=== PATIENT | male | born 1965 | race Caucasian/White ===

== ENCOUNTER 2017-03-11 14:12 | Observation (INO) | payer OTHER ==
--- NOTE | 2017-03-11 18:46 | PDOC ---
History of Present Illness - General History Source: Patient Exam Limitations: No Limitations - History of Present Illness Initial Comments: The patient is a 52 yo M with a past medical history significant for type 2 DM, HTN, HLD, and stroke who was sent from his PCP with bilateral lower extremity swelling for 3 weeks. The patient states the swelling started in his L leg and has been progressively worsening in both his extremities. The patient also endorses clear watery drainage from spots on his legs and notes his legs feel stiff. The patient also endorses urinary frequency and urgency. He denies hematuria and dysuria. He endorses increased urgency in his BMs as well. He denies melena and hematochezia. He denies shortness of breath, orthopnea, fevers and chills. He denies chest pain, palpitations and lightheadedness. <Tino Moise - Last Filed: 03/11/17 22:23> - General History Source: Patient Exam Limitations: No Limitations <Feliberto Buitrago - Last Filed: 03/11/17 23:16> - General Chief Complaint: Edema Stated Complaint: EDEMA Time Seen by Provider: 03/11/17 17:11 Past History <Tino Moise - Last Filed: 03/11/17 22:23> - Past Medical History Diabetes: Yes HTN: Yes Hypercholesterolemia: Yes - Immunization History Immunization Up to Date: Yes - Psycho/Social/Smoking Cessation Hx Suicidal Ideation: No Smoking History: Current every day smoker Number of Cigarettes Smoked Daily: 5 Information on smoking cessation initiated: No Hx Alcohol Use: No Drug/Substance Use Hx: No Substance Use Type: None <Feliberto Buitrago - Last Filed: 03/11/17 23:16> - Past Medical History Allergies/Adverse Reactions: Allergies Allergy/AdvReac Type Severity Reaction Status Date / Time No Known Allergies Allergy Verified 03/11/17 14:18 Home Medications: Ambulatory Orders Insulin (LOG) Aspart [NovoLOG -] 25 units SQ DAILY 03/11/17 Insulin Lispro [Humalog] See Protocol SQ ASDIR 03/11/17 Lisinopril [Zestril] 40 mg PO DAILY 03/11/17 Magnesium 300 mg PO DAILY 03/11/17 Metformin HCl 1,000 mg PO BID 03/11/17 Review of Systems - Review of Systems Able to Perform ROS?: Yes Comments:: GENERAL/CONSTITUTIONAL: No fever or chills. No weakness. HEAD, EYES, EARS, NOSE AND THROAT: No change in vision. No ear pain or discharge. No sore throat. CARDIOVASCULAR: No chest pain or shortness of breath. RESPIRATORY: No cough, wheezing, or hemoptysis. GASTROINTESTINAL: No nausea, vomiting, diarrhea or constipation. GENITOURINARY: +frequency, urgency No dysuria. MUSCULOSKELETAL: +bilateral LE swelling with drainage No joint or muscle pain. No neck or back pain. SKIN: No rash NEUROLOGIC: No headache, vertigo, loss of consciousness, or change in strength/ sensation. ENDOCRINE: No increased thirst. No abnormal weight change. HEMATOLOGIC/LYMPHATIC: No anemia, easy bleeding, or history of blood clots. ALLERGIC/IMMUNOLOGIC: No hives or skin allergy. <Tino Moise - Last Filed: 03/11/17 22:23> *Physical Exam - Vital Signs Last Vital Signs Temp Pulse Resp BP Pulse Ox 98.7 F 86 18 163/85 98 03/11/17 14:20 03/11/17 14:20 03/11/17 14:20 03/11/17 14:20 03/11/17 14:20 - Physical Exam Comments: GENERAL: Awake, alert, and fully oriented, in no acute distress HEAD: No signs of trauma EYES: PERRLA, EOMI, sclera anicteric, conjunctiva clear ENT: Auricles normal inspection, hearing grossly normal, nares patent, oropharynx clear without exudates. Moist mucosa NECK: Normal ROM, supple, no lymphadenopathy, JVD, or masses LUNGS: Breath sounds equal, clear to auscultation bilaterally. No wheezes, and no crackles HEART: Regular rate and rhythm, normal S1 and S2, no murmurs, rubs or gallops ABDOMEN: Soft, nontender, normoactive bowel sounds. No guarding, no rebound. No masses EXTREMITIES: Normal range of motion. No clubbing or cyanosis. No cords, erythema, or tenderness. Mild clearish drainage from intermittent spots on bilateral LEs. 2+ pitting edema in bilateral LE. NEUROLOGICAL: Cranial nerves II through XII grossly intact. Normal speech, gait not assessed. SKIN: Warm, Dry, normal turgor, no rashes or lesions noted. <Tino Moise - Last Filed: 03/11/17 22:23> - Vital Signs Last Vital Signs Temp Pulse Resp BP Pulse Ox 98.7 F 86 18 163/85 98 03/11/17 14:20 03/11/17 14:20 03/11/17 14:20 03/11/17 14:20 03/11/17 14:20 <Feliberto Buitrago - Last Filed: 03/11/17 23:16> Heart Score/ECG Review #1 ECG reviewed & interpreted by me at: 19:00 03/11/17 20:32 NSR 61, no std/johnna, TWI III, T wave flat aVF, QTC 402 msec <Feliberto Buitrago - Last Filed: 03/11/17 23:16> ED Treatment Course - LABORATORY CBC & Chemistry Diagram: 03/11/17 18:26 03/11/17 20:40 <Tino Moise - Last Filed: 03/11/17 22:23> - LABORATORY CBC & Chemistry Diagram: 03/11/17 18:26 03/11/17 20:40 - RADIOLOGY Radiology Studies Ordered: Category Date Time Status CHEST PA & LAT [RAD] Stat Radiology 03/11/17 18:24 Ordered DUPLEX VASCUL US-2LEGS [US] Stat Ultrasound 03/11/17 18:24 Ordered <Feliberto Buitrago - Last Filed: 03/11/17 23:16> Medical Decision Making - Medical Decision Making Paged Dr. Godwin (secondary social studies teacher for Dr. Ghosh) @ 21:53. Awaiting call back. Paged Dr. Godwin @ 22:23. Awaiting call back. <Tino Moise - Last Filed: 03/11/17 22:23> - Medical Decision Making 03/11/17 18:56 A portion of this note was written by my scribe, under my supervision. Vital Signs Temp Pulse Resp BP Pulse Ox 98.7 F 86 18 163/85 98 03/11/17 14:20 03/11/17 14:20 03/11/17 14:20 03/11/17 14:20 03/11/17 14:20 52 year old male with PMH of HTN, DM, HLD p/w increasingly lower extremity edema b/l x 3 weeks. States has been increasingly more edematous but nontender. States that he has been sitting in his chair often. Noted that it was starting to start some mild clearish leaking from lower extremities and came into the ED. Denies pain, chest pain, shortness of breath. Differential includes DVTs, acute kidney injury, hypoalbumin, CHF. Labs, chest xray, UA, duplex and reassess. 03/11/17 23:12 CBC, BMP 03/11/17 18:26 03/11/17 20:40 CMP Sodium 138 mmol/L (136-145) 03/11/17 20:40 Potassium 3.8 mmol/L (3.5-5.1) 03/11/17 20:40 Chloride 106 mmol/L (98-107) 03/11/17 20:40 Carbon Dioxide 25 mmol/L (21-32) 03/11/17 20:40 Anion Gap 7 (8-16) L 03/11/17 20:40 BUN 16 mg/dL (7-18) 03/11/17 20:40 Creatinine 0.9 mg/dL (0.7-1.3) 03/11/17 20:40 Creat Clearance w eGFR > 60 (>60) 03/11/17 20:40 Random Glucose 323 mg/dL (74-106) H* 03/11/17 20:40 Calcium 8.2 mg/dL (8.5-10.1) L 03/11/17 20:40 Total Bilirubin 0.4 mg/dL (0.2-1.0) 03/11/17 20:40 AST 22 U/L (15-37) 03/11/17 20:40 ALT 28 U/L (12-78) 03/11/17 20:40 Alkaline Phosphatase 150 U/L (45-117) H 03/11/17 20:40 B-Natriuretic Peptide 159.26 pg/ml (5-125) H 03/11/17 20:40 Total Protein 4.8 g/dl (6.4-8.2) L 03/11/17 20:40 Albumin 1.6 g/dl (3.4-5.0) L 03/11/17 20:40 Urine Test Results Urine Color Straw 03/11/17 18:08 Urine Appearance Clear 03/11/17 18:08 Urine pH 6.0 (5.0-8.0) 03/11/17 18:08 Ur Specific [place] 1.020 (1.005-1.025) 03/11/17 18:08 Urine Protein 3+ (NEGATIVE) H 03/11/17 18:08 Urine Glucose (UA) 3+ (NEGATIVE) H 03/11/17 18:08 Urine Ketones Negative (NEGATIVE) 03/11/17 18:08 Urine Blood Negative (NEGATIVE) 03/11/17 18:08 Urine Nitrite Negative (NEGATIVE) 03/11/17 18:08 Urine Bilirubin Negative (NEGATIVE) 03/11/17 18:08 Ur Leukocyte Esterase Trace (NEGATIVE) 03/11/17 18:08 Urine RBC 2 /hpf (0-3) 03/11/17 18:08 Urine WBC 3 /hpf (3-5) 03/11/17 18:08 Ur Epithelial Cells Rare /hpf (FEW) 03/11/17 18:08 Urine Bacteria Rare /hpf (NONE SEEN) 03/11/17 18:08 Chest xray reviewed by me, pending official radiology read. No cardiomegaly. Patient has low albumin and 3+ protein urine concerning for nephrotic syndrome. Given the elevated glucose, this is concerning for potentially diabetic nephropathy. We'll admit for stricter control of glucose and for nephrotic syndrome workup. Case was discussed with bass viol repairer Dr. Godwin who will see patient as a financial operations consultant. Case discussed with [facility] hospitalist, who agrees for admission to the hospital. Case discussed in detail with admitting physician including history, physical exam and ancillary studies. Admitting physician has assumed care for the patient, will follow all pending diagnostics and will complete the evaluation and treatment. <Feliberto Buitrago - Last Filed: 03/11/17 23:16> *DC/Admit/Observation/Transfer - Attestations Scribe Attestion: Documentation prepared by Tino Moise, acting as medical administrator for Feliberto Buitrago MD, MD/DO. <Tino Moise - Last Filed: 03/11/17 22:23> - Discharge Dispostion Admit: Yes <Feliberto Buitrago - Last Filed: 03/11/17 23:16> Diagnosis at time of Disposition: Edema of lower extremity, Hyperglycemia - Discharge Dispostion Condition at time of disposition: Stable - Referrals Referrals: Donita Bruno MD [Primary Care Provider] -
[2017-03-11 18:52] LABS: EOSINOPHIL 2.1 % (0-4.5); MCH 30.9 pg (25.7-33.7); MCHC 34.4 g/dl (32.0-35.9); MEAN CELL VOLUME 89.7 fl (80-96); MEAN PLT VOLUME 8.4 fl (7.5-11.1); NEUTROPHILS 68.6 % (42.8-82.8); PLATELET COUNT 286 K/MM3 (134-434); RDW 14.5 % (11.9-15.9); WHITE BLOOD COUNT 7.4 K/mm3 (4.0-10.0)
[2017-03-11 19:59] LABS: URINE APPEARANCE CLEAR; URINE BILIRUBIN NEGATIVE (NEGATIVE); URINE BLOOD NEGATIVE (NEGATIVE); URINE COLOR STRAW; URINE GLUCOSE (UA) 3+ (NEGATIVE); URINE KETONE NEGATIVE (NEGATIVE); URINE LEUK ESTERASE TRACE (NEGATIVE); URINE NITRITE NEGATIVE (NEGATIVE); URINE UROBILINOGEN NEGATIVE mg/dL (0.2-1.0)
[2017-03-11 20:05] LABS: URINE PROTEIN 3+ (NEGATIVE)
[2017-03-11 20:14] LABS: URINE BACTERIA RARE /hpf (NONE SEEN); URINE HYALINE CAST 1 /lpf; URINE RBC 2 /hpf (0-3); URINE WBC 3 /hpf (3-5)
[2017-03-11 21:42] LABS: ALBUMIN 1.6 g/dl (3.4-5.0); ANION GAP 7 (8-16); BILIRUBIN,TOTAL 0.4 mg/dL (0.2-1.0); CALCIUM 8.2 mg/dL (8.5-10.1); CO2 25 mmol/L (21-32); CREATININE 0.9 mg/dL (0.7-1.3); SGOT/AST 22 U/L (15-37); SGPT/ALT 28 U/L (12-78); TOT PROT 4.8 g/dl (6.4-8.2)
[2017-03-11 21:44] LABS: ALK PHOS 150 U/L (45-117)
[2017-03-11 21:45] LABS: GLUCOSE,RANDOM 323 mg/dL (74-106)
--- NOTE | 2017-03-12 03:32 | HP ---
CHIEF COMPLAINT: leg pain PCP: Dr. Quiñones HISTORY OF PRESENT ILLNESS: Pt is a 52y/o M with PMH type 2 DM, HTN, HLD, and stroke who presented to the ED sent by PCP with leg swelling and pain. Pt has had leg swelling for 3 weeks and went for a regular doctor's appointment today where she told him to come to the ED. Pt states he has small lesions on his legs which can be seen to be weeping. Pt admits to urinaryand fecal urgency and slight incontinence. Pt denies headache, cp, sob, abd pain, flank pain, fever. Pt states he was an alcoholic in the past but quit drinking 10 years ago. Started drinking 6 beers/day 3 weeks ago. Pt states he stopped drinking 2 days ago. Pt also quit smoking 15 years ago but started smoking 1 pack per week 2-3 months ago. ER course was notable for: (1) U/S neg for DVT, CXR, high glucose, alk phos, BNP, low albumin, UA w/ 3+ prot and 3+ glucose, EKG (2) (3) Recent Travel: denies PAST MEDICAL HISTORY: type 2 DM, HTN, HLD, and stroke PAST SURGICAL HISTORY: Social History: Smokin pack per week Alcohol: 6 beers per day Drugs: marijuana Family History: Denies Allergies No Known Allergies Allergy (Verified 03/11/17 14:18) HOME MEDICATIONS: Home Medications Medication Instructions Recorded Insulin (LOG) Aspart [NovoLOG -] 25 units SQ DAILY 03/11/17 Insulin Lispro [Humalog] See Protocol SQ ASDIR 03/11/17 Lisinopril [Zestril] 40 mg PO DAILY 03/11/17 Magnesium 300 mg PO DAILY 03/11/17 Metformin HCl 1,000 mg PO BID 03/11/17 REVIEW OF SYSTEMS CONSTITUTIONAL: Absent: fever, chills, diaphoresis, generalized weakness, malaise, loss of appetite, weight change HEENT: Absent: rhinorrhea, nasal congestion, throat pain, throat swelling, difficulty swallowing, mouth swelling, ear pain, eye pain, visual changes CARDIOVASCULAR: peripheral edema Absent: chest pain, syncope, palpitations, irregular heart rate, lightheadedness , RESPIRATORY: Absent: cough, shortness of breath, dyspnea with exertion, orthopnea, wheezing, stridor, hemoptysis GASTROINTESTINAL: fecal urgency/incontinence with soft stools Absent: abdominal pain, abdominal distension, nausea, vomiting, diarrhea, constipation, melena, hematochezia GENITOURINARY: urgency Absent: dysuria, frequency, , hesitancy, hematuria, flank pain, genital pain MUSCULOSKELETAL: Absent: myalgia, arthralgia, joint swelling, back pain, neck pain SKIN: Absent: rash, itching, pallor HEMATOLOGIC/IMMUNOLOGIC: Absent: easy bleeding, easy bruising, lymphadenopathy, frequent infections ENDOCRINE: Absent: unexplained weight gain, unexplained weight loss, heat intolerance, cold intolerance NEUROLOGIC: Absent: headache, focal weakness or paresthesias, dizziness, unsteady gait, seizure, mental status changes, bladder or bowel incontinence PSYCHIATRIC: Absent: anxiety, depression, suicidal or homicidal ideation, hallucinations. PHYSICAL EXAMINATION GENERAL: Awake, alert, and fully oriented, in no acute distress. HEAD: Normal with no signs of trauma. EYES: Pupils equal, round and reactive to light, extraocular movements intact, sclera anicteric, conjunctiva clear. No lid lag. EARS, NOSE, THROAT: nares patent, oropharynx clear without exudates. Moist mucous membranes. NECK: Normal range of motion, supple without lymphadenopathy, JVD, or masses. LUNGS: Breath sounds equal, clear to auscultation bilaterally. No wheezes, and no crackles. No accessory muscle use. HEART: Regular rate and rhythm, normal S1 and S2 without murmur, rub or gallop. ABDOMEN: Obese Soft, nontender, not distended, normoactive bowel sounds, no guarding, no rebound, no masses. No hepatomegaly or splenomegaly. MUSCULOSKELETAL: Normal range of motion at all joints. No bony deformities or tenderness. No CVA tenderness. UPPER EXTREMITIES: 2+ pulses, warm, well-perfused. No cyanosis. No clubbing. No peripheral edema. LOWER EXTREMITIES: 2+ pulses, warm, well-perfused. No calf tenderness. 2+ peripheral edema. NEUROLOGICAL: Cranial nerves II-XII intact. Normal speech. Normal gait. PSYCHIATRIC: Cooperative. Good eye contact. Appropriate mood and affect. SKIN: Warm, dry, normal turgor, no rashes or lesions noted, normal capillary refill. ASSESSMENT/PLAN: 52 y/o M with PMH type 2 DM, HTN, HLD, and stroke who presented to the ED sent by PCP with leg swelling and pain. Pt admitted to Obs for possible nephrotic syndrome. #Nephrotic syndrome -hypoalbuminemia, pedal edema, proteinuria -f/u renal U/S -f/u echo -f/u Ulytes -strict I's & O's -spot protein/creat ratio #Pedal edema -compression stockings -SCDs -Leg elevation #leg lesions -wound care #Alcohol abuse -6 beers/day for several weeks -EtOH level -WA protocol #DMII -glucosuria - glc 323 -A1C - ISS #FEN -not on fluid -lytes wnl -diabetic, Na-controlled diet #PPx -SCDs
--- NOTE | 2017-03-12 03:42 | PN ---
Teaching Attending Note Name of Resident: Rishi Spears ATTENDING PHYSICIAN STATEMENT I saw and evaluated the patient. I reviewed the resident's note and discussed the case with the resident. I agree with the resident's findings and plan as documented. SUBJECTIVE: 52 yo obese gentleman PMHx DM-II, HTN, HLD, EtOH abuse, CVA w/out residual deficit admitted for further evaluation of progressive LE edema concerning for nephrotic syndrome. OBJECTIVE: - Vital Signs Temp: 98.7F BP: 160s/80s HR: 80s RR: 18 spO2: 98% - Physical Examination General: Obese male in NAD HEENT: Atraumatic, No oropharyngeal lesions Neck: No JVD CV: RRR, S1 and S2 Pulm: CTA anteriorly Abd: Obese, NTTP, ND, BS + Ext: 2-3+ pitting edema bilaterally in LE's Lymph: No cervical or supraclavicular lymphadenopathy - Imaging LE Dopplers reviewed ( Negative for DVT bilaterally ) CXR reviewed ( Negative for edema or infiltrate ) - Labs BUN/Cr: 16/0.9 K+ 3.8 ; Total Protein 4.8 , Albumin 1.6 Glu: 323 H/H: 12.7/37.0 BNP: 159 UA: 3+ Proteinuria, Glucosuria, Trace [place] Est, 2 RBCs per hpf and 3 wbcs per hpf ASSESSMENT: Bilateral LE Edema - further evaluation possible nephrotic syndrome vs. (less likely) new/acutely decompensated CHF DM-II w/ Hyperglycemia ( Non-acidotic ) Essential HTN - Poorly controlled Hypoalbuminemia Proteinuria Obesity - possible RIMA DLD Chronic EtOH Abuse Tobacco Abuse PLAN: Admit to general medical floor for further evaluation while awaiting Nephrology evaluation. Confirm and continue home regimen as indicated/discussed Basal and SSI regimen ; F/U A1c CIWA protocol w/ PO Librium/Ativan PO Thiamine, Folate, MVI F/U TSH, Alb:Creat, Urine electrolytes, Echocardiogram, RUQ U/S, and renal u/s DISPOSITION: Anticipated discharge in >48h pending Nephrology evaluation and recommendations and results of pending labs/imaging.
[2017-03-12 05:04] VITALS: BMI 35.8
[2017-03-12] MEDS: INSULIN SLIDING SCALE (NOVOLOG) 1 VIAL SQ SCH ×4 (06:38→21:51)
--- NOTE | 2017-03-12 08:40 | PN ---
Physical Exam: SUBJECTIVE: Patient seen and examined Patient is comfortable , no acute distress. No fever or chills. OBJECTIVE: Vital Signs Temperature 97.4 F L 03/12/17 08:20 Pulse Rate 79 03/12/17 08:20 Respiratory Rate 20 03/12/17 08:20 Blood Pressure 173/92 03/12/17 08:20 O2 Sat by Pulse Oximetry (%) 98 03/11/17 14:20 GENERAL: The patient is awake, alert, and fully oriented, in no acute distress. HEAD: Normal with no signs of trauma. EYES: PERRL, extraocular movements intact, sclera anicteric, conjunctiva clear. No ptosis. ENT: Ears normal, nares patent, oropharynx clear without exudates, moist mucous membranes. NECK: Trachea midline, full range of motion, supple. LUNGS: Breath sounds equal, clear to auscultation bilaterally, no wheezes, no crackles, no accessory muscle use. HEART: Regular rate and rhythm, S1, S2 positive, no murmur is appreciated ,no rub or gallop. ABDOMEN: Soft, NT, ND,normoactive bowel sounds, no guarding, no rebound, no hepatosplenomegaly, no masses. EXTREMITIES: 2+ pulses, warm, well-perfused, positive for non pitting edema. NEUROLOGICAL: Cranial nerves II through XII grossly intact. Normal speech. PSYCH: Normal mood, normal affect. SKIN: Warm, dry, normal turgor, insect bites on LE noted. Laboratory Results - last 24 hr 03/12/17 03/12/17 03:54 06:30 POC Glucometer 358 Alcohol, Quantitative Cancelled Active Medications Generic Name Dose Route Start Last Admin Trade Name Yulisa PRN Reason Stop Dose Admin Insulin Aspart 1 vial 03/12/17 07:00 03/12/17 06:38 Novolog Vial Sliding Scale - SQ 10 unit ACHS JERRICA Administration Protocol CBCD WBC 7.4 K/mm3 (4.0-10.0) 03/11/17 18:26 RBC 4.13 M/mm3 (4.00-5.60) 03/11/17 18:26 Hgb 12.7 GM/dL (11.7-16.9) 03/11/17 18:26 Hct 37.0 % (35.4-49) 03/11/17 18:26 MCV 89.7 fl (80-96) 03/11/17 18:26 MCHC 34.4 g/dl (32.0-35.9) 03/11/17 18:26 RDW 14.5 % (11.9-15.9) 03/11/17 18:26 Plt Count 286 K/MM3 (134-434) 03/11/17 18:26 MPV 8.4 fl (7.5-11.1) 03/11/17 18:26 CMP Sodium 138 mmol/L (136-145) 03/11/17 20:40 Potassium 3.8 mmol/L (3.5-5.1) 03/11/17 20:40 Chloride 106 mmol/L (98-107) 03/11/17 20:40 Carbon Dioxide 25 mmol/L (21-32) 03/11/17 20:40 Anion Gap 7 (8-16) L 03/11/17 20:40 BUN 16 mg/dL (7-18) 03/11/17 20:40 Creatinine 0.9 mg/dL (0.7-1.3) 03/11/17 20:40 Creat Clearance w eGFR > 60 (>60) 03/11/17 20:40 Random Glucose 323 mg/dL (74-106) H* 03/11/17 20:40 Calcium 8.2 mg/dL (8.5-10.1) L 03/11/17 20:40 Total Bilirubin 0.4 mg/dL (0.2-1.0) 03/11/17 20:40 AST 22 U/L (15-37) 03/11/17 20:40 ALT 28 U/L (12-78) 03/11/17 20:40 Alkaline Phosphatase 150 U/L (45-117) H 03/11/17 20:40 Total Protein 4.8 g/dl (6.4-8.2) L 03/11/17 20:40 Albumin 1.6 g/dl (3.4-5.0) L 03/11/17 20:40 Urine Test Results Urine Color Straw 03/11/17 18:08 Urine Appearance Clear 03/11/17 18:08 Urine pH 6.0 (5.0-8.0) 03/11/17 18:08 Ur Specific [place] 1.020 (1.005-1.025) 03/11/17 18:08 Urine Protein 3+ (NEGATIVE) H 03/11/17 18:08 Urine Glucose (UA) 3+ (NEGATIVE) H 03/11/17 18:08 Urine Ketones Negative (NEGATIVE) 03/11/17 18:08 Urine Blood Negative (NEGATIVE) 03/11/17 18:08 Urine Nitrite Negative (NEGATIVE) 03/11/17 18:08 Urine Bilirubin Negative (NEGATIVE) 03/11/17 18:08 Ur Leukocyte Esterase Trace (NEGATIVE) 03/11/17 18:08 Urine RBC 2 /hpf (0-3) 03/11/17 18:08 Urine WBC 3 /hpf (3-5) 03/11/17 18:08 Ur Epithelial Cells Rare /hpf (FEW) 03/11/17 18:08 Urine Bacteria Rare /hpf (NONE SEEN) 03/11/17 18:08 Hepatic Panel Total Bilirubin 0.4 mg/dL (0.2-1.0) 03/11/17 20:40 AST 22 U/L (15-37) 03/11/17 20:40 ALT 28 U/L (12-78) 03/11/17 20:40 Alkaline Phosphatase 150 U/L (45-117) H 03/11/17 20:40 Albumin 1.6 g/dl (3.4-5.0) L 03/11/17 20:40 ASSESSMENT/PLAN: 52 yo obese gentleman PMHx DM-II, HTN, HLD, EtOH abuse, CVA eith minimal residual admitted for further evaluation of progressive LE edema concerning for nephrotic syndrome. # T2DM uncontrolled Poorly controlled, Diabetic diet , nutrition consult to educate the patient for his Diabetus, on Metformin continue , will get to see the patient, endocrine. sliding scale with coverage. # Nephrotic syndrome , ordered Lipid profile as well, US of the kidneys pending , Nephro consult to see the patient. Lisinopril 40mg po in am and 20mg in pm. # Bilateral LE Edema ;nonpitting, TSH,FT4 pending will follow , Also due to Hypoalbuminemia , CXR within nl limits, Lasix 40mg IV x 1 dose now and will monitor. # Hypertension Uncontrolled increased the dose of Lisinopril 40mg and 10mg po pm , added lasix 40mg IV x 1 dose . # Hypoalbuminemia ,poor nutrition, Diabetus # Proteinuria due to his Uncontrolled DM # Obesity - due to his Diabetus with BMI of 35 #Chronic EtOH Abuse # Tobacco Abuse # Hx of CVA with minimal residiual of LLE , uses cane to ambulate. DVT Px: Early ambulation, Lovenox 40mg sq Visit type - Emergency Visit Emergency Visit: Yes ED Registration Date: 03/12/17 Care time: The patient presented to the Emergency Department on the above date and was hospitalized for further evaluation of their emergent condition. - New Patient This patient is new to me today: Yes Date on this admission: 03/12/17 - Critical Care Critical Care patient: No
[2017-03-12 09:21] LABS: URINE MARIJUANA THC NEGATIVE ng/ml (CUTOFF=50)
[2017-03-12 09:54] LABS: ALBUMIN 1.6 g/dl (3.4-5.0); ANION GAP 9 (8-16); BILIRUBIN,TOTAL 0.3 mg/dL (0.2-1.0); CALCIUM 8.4 mg/dL (8.5-10.1); CO2 26 mmol/L (21-32); CREATININE 0.8 mg/dL (0.7-1.3); GLUCOSE,RANDOM 258 mg/dL (74-106); MAGNESIUM 1.9 mg/dL (1.8-2.4); PHOSPHOROUS 2.8 mg/dL (2.5-4.9); SGOT/AST 29 U/L (15-37); SGPT/ALT 34 U/L (12-78)
[2017-03-12] MEDS ORDERED: PATIENT'S OWN MEDICATION (NON-FORMULARY) (Lisinopril [Zestril] 40 MG) PO SCH (10:00)
[2017-03-12] MEDS ORDERED: LISINOPRIL 20 MG TABLET (FP) PO SCH ×3 (10:00→22:00)
[2017-03-12 10:02] LABS: ALK PHOS 144 U/L (45-117); THYROID STIMULATING HORMONE 1.82 uIU/ml (0.358-3.74)
[2017-03-12] MEDS: metFORMIN HCL 500 MG TABLET (FP) PO SCH ×2 (10:10→17:35)
[2017-03-12] MEDS: LISINOPRIL 20 MG TABLET (FP) PO SCH (10:10)
--- NOTE | 2017-03-12 10:18 | CON.NEP ---
Consult Consult Specialty:: nephrology Reason for Consultation:: nephrotic range proteinuria - History of Present Illness Chief Complaint: leg edema History of Present Illness: This is a 52 year old man with a history of diabetes for about 20 years who presented to his PMD with increased leg edema and was sent to ED for evaluation. He states it started after he was bitten by a mosquito and his legs started weeping. This happened about 2 weeks ago. He also has not been taking his insulin because his insulin ran out. He drinks frequently but not recently. Takes aspirin but its not clear if he does it for pains. No foamy urine. No difficulty urinating and no dyspnea. No fever and no nausea or vomiting. He sees an heel seat pounder but has not done so recently. Was never told of any diabetic retinopathy. - History Source History Provided By: Patient, Medical Record Limitations to Obtaining History: No Limitations - Past Medical History Cardio/Vascular: Yes: HTN Endocrine: Yes: Diabetes Mellitus - Alcohol/Substance Use Hx Alcohol Use: No - Smoking History Smoking history: Current every day smoker Aproximately how many cigarettes per day: 5 Home Medications - Allergies Allergies/Adverse Reactions: Allergies Allergy/AdvReac Type Severity Reaction Status Date / Time No Known Allergies Allergy Verified 03/11/17 14:18 - Home Medications Home Medications: Ambulatory Orders Insulin (LOG) Aspart [NovoLOG -] 25 units SQ DAILY 03/11/17 Insulin Lispro [Humalog] See Protocol SQ ASDIR 03/11/17 Lisinopril [Zestril] 40 mg PO DAILY 03/11/17 Magnesium 300 mg PO DAILY 03/11/17 Metformin HCl 1,000 mg PO BID 03/11/17 Review of Systems - Review of Systems Constitutional: reports: No Symptoms Eyes: reports: No Symptoms HENT: reports: No Symptoms Neck: reports: No Symptoms Cardiovascular: reports: Edema Respiratory: reports: No Symptoms Gastrointestinal: reports: No Symptoms Genitourinary: reports: No Symptoms Breasts: reports: No Symptoms Reported Musculoskeletal: reports: No Symptoms Integumentary: reports: No Symptoms Neurological: reports: No Symptoms Endocrine: reports: Increased Thirst Hematology/Lymphatic: reports: No Symptoms Psychiatric: reports: No Symptoms Nephrology Consult - Height Height: 5 ft 2 in - Weight Weight: 196 lb - BMI Body Mass Index (BMI): 35.8 - Lab Results CBC,BMP: CBC, BMP 03/12/17 09:00 Anion Gap: Anion Gap Anion Gap 9 (8-16) 03/12/17 09:00 - Imaging Chest X-ray: Report Reviewed - Physical Examination Vital Signs: Vital Signs Temperature 97.4 F L 03/12/17 08:20 Pulse Rate 79 03/12/17 08:20 Respiratory Rate 20 03/12/17 08:20 Blood Pressure 173/92 03/12/17 08:20 O2 Sat by Pulse Oximetry (%) 98 03/11/17 14:20 Constitutional: Yes: Well Nourished, No Distress, Calm Eyes: Yes: Conjunctiva Clear, EOM Intact HENT: Yes: Atraumatic Neck: Yes: Supple, Trachea Midline Cardiovascular: Yes: Regular Rate and Rhythm Respiratory: Yes: Regular, CTA Bilaterally Gastrointestinal: Yes: Normal Bowel Sounds, Soft. No: Hepatomegaly, Splenomegaly Renal/: Yes: WNL Musculoskeletal: Yes: WNL Extremities: Yes: WNL Edema: Yes Edema: LLE: 2+, RLE: 2+ Integumentary: Yes: WNL Wound/Incision: Yes: Clean/Dry Neurological: Yes: Alert, Oriented Psychiatric: Yes: Alert, Oriented Assessment/Plan IMPRESSION Pt likely has diabetic nephropathy despite absence of diabetic retinopathy His glucose has been uncontrolled which makes it unusual that he is edematous. He does have significant proteinuria and is already on lisinopril. PLAN Would give lasix and keep on lisinopril needs proteinuria work up but can be done as outpatient especially since his only symptom is edema will also need echo- also outpatient If remains in hospital- check hep panel, lynne, urine protein and creatinine, SPEP , RPR, HIV if possible and start lasix MV
[2017-03-12] MEDS ORDERED: FUROSEMIDE 40 MG/4 ML INJECTABLE VIAL IVPB ONE (10:30)
--- NOTE | 2017-03-12 18:41 | EKG ---
Test Reason : Blood Pressure : / mmHG Vent. Rate : 061 BPM Atrial Rate : 061 BPM P-R Int : 142 ms QRS Dur : 088 ms QT Int : 400 ms P-R-T Axes : 026 -04 002 degrees QTc Int : 402 ms NORMAL SINUS RHYTHM NORMAL ECG NO PREVIOUS ECGS AVAILABLE Confirmed by ASHLEY NETTLES MD ([id number]) on 03/12/2017 6:40:31 PM Referred By: Confirmed By:ASHLEY NETTLES MD
--- NOTE | 2017-03-12 22:29 | CONSULT ---
Consult Consult Specialty:: endocrine/diabetes mellitus Referred by:: violet Reason for Consultation:: diabetes mellitus uncontrolled - History of Present Illness Chief Complaint: leg pains and high blood sugars History of Present Illness: 52y/o M with PMH type 2 DM, HTN, HLD, and stroke who presented to the ED sent by PCP with leg swelling and pain. Pt has had leg swelling for 3 weeks and went for a regular doctor's appointment today where she told him to come to the ED. Pt states he has small lesions on his legs which can be seen to be weeping. Pt admits to urinary frequency,and incontinence has elevation in blood sugars,leg pains,numbness,and blurred vision. - History Source History Provided By: Patient - Past Medical History Cardio/Vascular: Yes: HTN Endocrine: Yes: Diabetes Mellitus - Alcohol/Substance Use Hx Alcohol Use: No - Smoking History Smoking history: Current every day smoker Aproximately how many cigarettes per day: 5 Home Medications - Allergies Allergies/Adverse Reactions: Allergies Allergy/AdvReac Type Severity Reaction Status Date / Time No Known Allergies Allergy Verified 03/11/17 14:18 - Home Medications Home Medications: Ambulatory Orders Insulin (LOG) Aspart [NovoLOG -] 25 units SQ DAILY 03/11/17 Insulin Lispro [Humalog] See Protocol SQ ASDIR 03/11/17 Lisinopril [Zestril] 40 mg PO DAILY 03/11/17 Magnesium 300 mg PO DAILY 03/11/17 Metformin HCl 1,000 mg PO BID 03/11/17 Review of Systems - Review of Systems Constitutional: reports: Loss of Appetite, Weakness Eyes: reports: Double Vision HENT: reports: No Symptoms Neck: reports: No Symptoms Cardiovascular: reports: Shortness of Breath Respiratory: reports: Exercise Intolerance, SOB on Exertion Gastrointestinal: reports: Bloating, Constipation Genitourinary: reports: Frequency, Urgency Breasts: reports: No Symptoms Reported Musculoskeletal: reports: Back Pain Integumentary: reports: Erythema, Rash Neurological: reports: No Symptoms Endocrine: reports: Unexplained Weight Gain Physical Exam Vital Signs: Vital Signs Temperature 99.4 F 03/12/17 17:13 Pulse Rate 74 03/12/17 17:13 Respiratory Rate 20 03/12/17 17:13 Blood Pressure 145/76 03/12/17 17:13 O2 Sat by Pulse Oximetry (%) 98 03/11/17 14:20 Constitutional: Yes: Anxious Eyes: Yes: EOM Intact HENT: Yes: Normocephalic Neck: Yes: Trachea Midline Cardiovascular: Yes: Tachycardia Respiratory: Yes: CTA Bilaterally Gastrointestinal: Yes: Normal Bowel Sounds ...Rectal Exam: Yes: Deferred Renal/: Yes: WNL Breast(s): Yes: WNL Musculoskeletal: Yes: Joint Stiffness, Joint Swelling, Muscle Pain, Muscle Weakness Extremities: Yes: Erythema Edema: Yes Edema: LLE: 3+, RLE: 2+ Neurological: Yes: Alert, Oriented, Numbness, Tingling Psychiatric: Yes: Alert, Oriented Labs: CBC, BMP 03/12/17 09:00 Problem List - Problems (1) Hyperglycemia Code(s): R73.9 - HYPERGLYCEMIA, UNSPECIFIED (2) Lower extremity edema Code(s): R60.0 - LOCALIZED EDEMA (3) Type 2 diabetes mellitus with autonomic neuropathy Code(s): E11.43 - TYPE 2 DIABETES W DIABETIC AUTONOMIC (POLY)NEUROPATHY Assessment/Plan Current Active Problems Hyperglycemia (Acute) Lower extremity edema (Acute) diabetes melllitus neuropathy htn morbid obesity nephrotic syndrome Abnormal Lab Results 03/11/17 03/12/17 03/12/17 18:08 09:00 09:00 Random Glucose 258 H D Hemoglobin A1c % 10.8 H Calcium 8.4 L Alkaline Phosphatase 144 H Total Protein 5.0 L Albumin 1.6 L Urine Protein 3+ H Urine Glucose (UA) 3+ H Laboratory Results - last 24 hr 03/11/17 03/12/17 03/12/17 18:08 03:54 06:30 Sodium Potassium Chloride Carbon Dioxide Anion Gap BUN Creatinine Creat Clearance w eGFR POC Glucometer 358 Random Glucose Hemoglobin A1c % Calcium Phosphorus Magnesium Total Bilirubin AST ALT Alkaline Phosphatase Total Protein Albumin TSH Urine Color Straw Urine Appearance Clear Urine pH 6.0 Ur Specific Mcgee 1.020 Urine Protein 3+ H Urine Glucose (UA) 3+ H Urine Ketones Negative Urine Blood Negative Urine Nitrite Negative Urine Bilirubin Negative Urine Urobilinogen Negative Ur Leukocyte Esterase Trace Urine RBC 2 Urine WBC 3 Ur Epithelial Cells Rare Urine Bacteria Rare Hyaline Casts 1 Opiates Screen Methadone Screen Barbiturate Screen Phencyclidine Screen Ur Amphetamines Screen MDMA (Ecstasy) Screen Benzodiazepines Screen Cocaine Screen U Marijuana (THC) Screen Alcohol, Quantitative Cancelled 03/12/17 03/12/17 03/12/17 08:47 09:00 09:00 Sodium 140 Potassium 4.0 Chloride 105 Carbon Dioxide 26 Anion Gap 9 BUN 14 Creatinine 0.8 Creat Clearance w eGFR > 60 POC Glucometer Random Glucose 258 H D Hemoglobin A1c % 10.8 H Calcium 8.4 L Phosphorus 2.8 Magnesium 1.9 Total Bilirubin 0.3 D AST 29 D ALT 34 D Alkaline Phosphatase 144 H Total Protein 5.0 L Albumin 1.6 L TSH 1.82 Urine Color Urine Appearance Urine pH Ur Specific Mcgee Urine Protein Urine Glucose (UA) Urine Ketones Urine Blood Urine Nitrite Urine Bilirubin Urine Urobilinogen Ur Leukocyte Esterase Urine RBC Urine WBC Ur Epithelial Cells Urine Bacteria Hyaline Casts Opiates Screen Negative Methadone Screen Negative Barbiturate Screen Negative Phencyclidine Screen Negative Ur Amphetamines Screen Negative MDMA (Ecstasy) Screen Negative Benzodiazepines Screen Negative Cocaine Screen Negative U Marijuana (THC) Screen Negative Alcohol, Quantitative 03/12/17 03/12/17 03/12/17 11:28 17:13 21:49 Sodium Potassium Chloride Carbon Dioxide Anion Gap BUN Creatinine Creat Clearance w eGFR POC Glucometer 378 397 309 Random Glucose Hemoglobin A1c % Calcium Phosphorus Magnesium Total Bilirubin AST ALT Alkaline Phosphatase Total Protein Albumin TSH Urine Color Urine Appearance Urine pH Ur Specific Mcgee Urine Protein Urine Glucose (UA) Urine Ketones Urine Blood Urine Nitrite Urine Bilirubin Urine Urobilinogen Ur Leukocyte Esterase Urine RBC Urine WBC Ur Epithelial Cells Urine Bacteria Hyaline Casts Opiates Screen Methadone Screen Barbiturate Screen Phencyclidine Screen Ur Amphetamines Screen MDMA (Ecstasy) Screen Benzodiazepines Screen Cocaine Screen U Marijuana (THC) Screen Alcohol, Quantitative plan; bgm qid novolog insulin coverage novolog 70/30 bid titrated for diet and compliance Current Medications Generic Name Dose Route Start Last Admin Trade Name Renéq PRN Reason Stop Dose Admin Enoxaparin Sodium 40 mg 03/13/17 10:00 Lovenox - SQ DAILY JERRICA Insulin Aspart 1 vial 03/12/17 07:00 03/12/17 21:51 Novolog Vial Sliding Scale - SQ 8 unit ACHS JERRICA Administration Protocol Lisinopril 20 mg 03/12/17 22:00 03/12/17 21:54 Prinivil PO 20 mg 2200 JERRICA Administration Lisinopril 40 mg 03/12/17 10:00 03/12/17 10:10 Prinivil PO 40 mg AM JERRICA Administration Metformin HCl 1,000 mg 03/12/17 10:00 03/12/17 17:35 Glucophage - PO 1,000 mg BIDAC JERRICA Administration
[2017-03-13] MEDS: INSULIN SLIDING SCALE (NOVOLOG) 1 VIAL SQ SCH ×2 (06:26→12:38)
[2017-03-13] MEDS: metFORMIN HCL 500 MG TABLET (FP) PO SCH (06:29)
[2017-03-13] MEDS ORDERED: LISINOPRIL 20 MG TABLET (FP) PO SCH (06:47)
[2017-03-13] MEDS: LISINOPRIL 20 MG TABLET (FP) PO SCH (06:49)
[2017-03-13] MEDS ORDERED: INSULIN (NOVOLOG MIX 70/30) 100 UNITS/ML MDV SQ SCH (07:00)
[2017-03-13 08:14] LABS: ALBUMIN 1.4 g/dl (3.4-5.0); ANION GAP 6 (8-16); CALCIUM 8.1 mg/dL (8.5-10.1); CO2 27 mmol/L (21-32); CREATININE 0.8 mg/dL (0.7-1.3); GLUCOSE,RANDOM 267 mg/dL (74-106); SGOT/AST 24 U/L (15-37); SGPT/ALT 27 U/L (12-78)
[2017-03-13 08:19] LABS: ALK PHOS 116 U/L (45-117); BILIRUBIN,TOTAL 0.4 mg/dL (0.2-1.0); FREE T4 1.02 ng/dl (0.76-1.16); TOT PROT 4.2 g/dl (6.4-8.2)
[2017-03-13 08:50] LABS: CHOLESTEROL 284 mg/dL (50-200); LDL CHOLESTEROL (ONLY SJRH) 184 mg/dL (5-100)
[2017-03-13] MEDS ORDERED: ENOXAPARIN NA (PORCINE) 40 MG/0.4 ML DISP.SYRIN SQ SCH (10:00)
--- NOTE | 2017-03-13 10:15 | DS ---
Physical Exam: SUBJECTIVE: Patient seen and examined Patient is feeling better, no acute distress with no acute distress. OBJECTIVE: Vital Signs Temperature 98.2 F 03/13/17 06:15 Pulse Rate 76 03/13/17 06:15 Respiratory Rate 18 03/13/17 06:15 Blood Pressure 142/75 03/13/17 06:15 O2 Sat by Pulse Oximetry (%) 97 03/13/17 05:56 PHYSICAL EXAM GENERAL: The patient is awake, alert, and fully oriented, in no acute distress. HEAD: Normal with no signs of trauma. EYES: PERRL, extraocular movements intact, sclera anicteric, conjunctiva clear. ENT: Ears normal, oropharynx clear without exudates, moist mucous membranes. NECK: Trachea midline, full range of motion, supple. LUNGS: Breath sounds equal, clear to auscultation bilaterally, no wheezes, no crackles, no accessory muscle use. HEART: Regular rate and rhythm, S1, S2 without murmur, rub or gallop. ABDOMEN: Soft, nontender, nondistended, normoactive bowel sounds, no hepatosplenomegaly, no masses. EXTREMITIES: 2+ pulses, warm, well-perfused, positive for edema. NEUROLOGICAL: Cranial nerves II through XII grossly intact. Normal speech, gait not observed. PSYCH: Normal mood, normal affect. SKIN: Warm, dry, normal turgor, no rashes or lesions noted. LABS Laboratory Results - last 24 hr 03/12/17 03/12/17 03/12/17 09:00 09:00 11:28 Sodium 140 Potassium 4.0 Chloride 105 Carbon Dioxide 26 Anion Gap 9 BUN 14 Creatinine 0.8 Creat Clearance w eGFR > 60 POC Glucometer 378 Random Glucose 258 H D Hemoglobin A1c % 10.8 H Calcium 8.4 L Phosphorus 2.8 Magnesium 1.9 Total Bilirubin 0.3 D AST 29 D ALT 34 D Alkaline Phosphatase 144 H Total Protein 5.0 L Albumin 1.6 L Triglycerides Cholesterol Total LDL Cholesterol HDL Cholesterol TSH 1.82 Free T4 Ur Random Sodium Ur Random Potassium Ur Random Chloride 03/12/17 03/12/17 03/13/17 17:13 21:49 06:00 Sodium Potassium Chloride Carbon Dioxide Anion Gap BUN Creatinine Creat Clearance w eGFR POC Glucometer 397 309 Random Glucose Hemoglobin A1c % Calcium Phosphorus Magnesium Total Bilirubin AST ALT Alkaline Phosphatase Total Protein Albumin Triglycerides Cholesterol Total LDL Cholesterol HDL Cholesterol TSH Free T4 Ur Random Sodium 64 Ur Random Potassium 38.1 Ur Random Chloride 73 03/13/17 03/13/17 03/13/17 06:20 06:20 06:23 Sodium 138 Potassium 3.7 Chloride 105 Carbon Dioxide 27 Anion Gap 6 L BUN 15 Creatinine 0.8 Creat Clearance w eGFR > 60 POC Glucometer 276 Random Glucose 267 H Hemoglobin A1c % Calcium 8.1 L Phosphorus Magnesium Total Bilirubin 0.4 D AST 24 ALT 27 D Alkaline Phosphatase 116 Total Protein 4.2 L Albumin 1.4 L Triglycerides 302 H Cholesterol 284 H Total LDL Cholesterol 184 H HDL Cholesterol 52 TSH Free T4 1.02 Ur Random Sodium Ur Random Potassium Ur Random Chloride Current Medications Generic Name Dose Route Start Last Admin Trade Name Freq PRN Reason Stop Dose Admin Atorvastatin Calcium 40 mg 03/13/17 22:00 Lipitor - PO HS JERRICA Enoxaparin Sodium 40 mg 03/13/17 10:00 03/13/17 09:30 Lovenox - SQ 40 mg DAILY JERRICA Administration Insulin Aspart 1 vial 03/12/17 07:00 03/13/17 06:26 Novolog Vial Sliding Scale - SQ 6 unit ACHS JERRICA Administration Protocol Insulin Aspart 20 units 03/13/17 07:00 03/13/17 06:28 Novolog Mix 70/30 Vial SQ 20 unit BIDAC JERRICA Administration Lisinopril 20 mg 03/12/17 22:00 03/12/17 21:54 Prinivil PO 20 mg 2200 JERRICA Administration Lisinopril 40 mg 03/13/17 06:47 03/13/17 09:30 Prinivil PO 40 mg DAILY JERRICA Administration Metformin HCl 1,000 mg 03/12/17 10:00 03/13/17 06:29 Glucophage - PO 1,000 mg BIDAC JERRICA Administration Okpst-2-Agqd Ethyl Esters 2 gm 03/13/17 22:00 Lovaza - PO BID [facility] Home Medications Medication Instructions Recorded Insulin (LOG) Aspart [NovoLOG -] 25 units SQ DAILY 03/11/17 Insulin Lispro [Humalog] See Protocol SQ ASDIR 03/11/17 Lisinopril [Zestril] 40 mg PO DAILY 03/11/17 Magnesium 300 mg PO DAILY 03/11/17 Metformin HCl 1,000 mg PO BID 03/11/17 HOSPITAL COURSE: Date of Admission:03/12/17 Date of Discharge: 03/13/17 52 yo obese gentleman PMHx DM-II, HTN, HLD, EtOH abuse, CVA eith minimal residual admitted for further evaluation of progressive LE edema concerning for nephrotic syndrome. # T2DM uncontrolled Poorly controlled, Diabetic diet , Endocrine consult with appreciated, given Novolog 70/30 Before breakfast and lunch 2x per day , continue Metformin. # Nephrotic syndrome , Elevated Lipids, LDL cholesterol and TGs, ordered lipitor 40mg and Lovaza 2gm bid, , US of the kidneys normal as per report , Nephro consult appreciated , will follow with setter cold rolling machine as an outpatient. Lisinopril 40mg po in am and 20mg in pm added. continue # Bilateral LE Edema ;nonpitting, TSH,FT4 within normal limits, improved,, CXR within nl limits, Lasix 20mg po daily added to his regimen. # Hypertension Uncontrolled increased the dose of Lisinopril 40mg and 20mg po pm , added lasix 20mg po daily . # Hypoalbuminemia , poor nutrition, Diabetus # Proteinuria due to his Uncontrolled DM # Obesity - due to his Diabetus with BMI of 35 #Chronic EtOH Abuse # Tobacco Abuse # Hx of CVA with minimal residiual of LLE , uses cane to ambulate. Follow with primary care Doctor, follow with Dr. Jacob and follow with . Minutes to complete discharge: 45 Discharge Summary Reason For Visit: EDEMA OF LOWER EXTREMITY Current Active Problems Hyperglycemia (Acute) Lower extremity edema (Acute) Nephrotic syndrome (Acute) Type 2 diabetes mellitus with autonomic neuropathy (Acute) Condition: Improved - Instructions Diet, Activity, Other Instructions: - Please check your fingerstick glucose three times a day before meals - Please keep a diary of your glucose readings - You must eat a diabetic diet (low in sugar, carbohydrates) - Eat foods that are low in cholesterol because your cholesterol is high - You must take your medications regularly NEW MEDICATIONS: - WE CHANGED YOUR INSULIN REGIMEN!! STOP TAKING YOUR OLD INSULIN - Take Novolog 70/30 BIDAC - Also take your Metformin 1,000mg BID - Fish Oil two times a day for your cholesterol - Lipitor 40mg at night for your cholesterol - Lasix 20mg daily for your blood pressure - Lisinopril two times a day (40mg in AM; 20mg at night) for your blood pressure FOLLOWUP: - Please followup with Dr. Quiñones your doctor within 1 week - Please followup with Dr. Gonzalez your biomass facilitator within 1 week Referrals: Wayne Gonzalez MD [Staff Physician] - 1 Week Donita Bruno MD [Primary Care Provider] - 1 Week Disposition: HOME - Home Medications Comprehensive Discharge Medication List: Ambulatory Orders Insulin (LOG) Aspart [NovoLOG -] 25 units SQ DAILY 03/11/17 Insulin Lispro [Humalog] See Protocol SQ ASDIR 03/11/17 Lisinopril [Zestril] 40 mg PO DAILY 03/11/17 Magnesium 300 mg PO DAILY 03/11/17 Metformin HCl 1,000 mg PO BID 03/11/17 This patient is new to me today: No Emergency Visit: Yes ED Registration Date: 03/12/17 Care time: The patient presented to the Emergency Department on the above date and was hospitalized for further evaluation of their emergent condition. Critical Care patient: No - Discharge Referral Referred to [facility] Med P.C.: No
[2017-03-13 11:26] VITALS: BP 139/84; PULSE 69; TEMP 97.5
--- NOTE | 2017-03-13 11:31 | PN ---
Progress Note (short form) - Note Progress Note: RENAL Pt seen and examined denies complaints says his legs feel better Last Vital Signs Temp Pulse Resp BP Pulse Ox 97.5 F L 69 18 139/84 97 03/13/17 09:00 03/13/17 09:00 03/13/17 10:58 03/13/17 09:00 03/13/17 10:58 lungs clear cvs s1s2 rr abd soft ext +edema neuro a+ox3 Current Medications Generic Name Dose Route Start Last Admin Trade Name Yulisa PRN Reason Stop Dose Admin Atorvastatin Calcium 40 mg 03/13/17 22:00 Lipitor - PO HS JERRICA Enoxaparin Sodium 40 mg 03/13/17 10:00 03/13/17 09:30 Lovenox - SQ 40 mg DAILY JERRICA Administration Insulin Aspart 1 vial 03/12/17 07:00 03/13/17 06:26 Novolog Vial Sliding Scale - SQ 6 unit ACHS JERRICA Administration Protocol Insulin Aspart 20 units 03/13/17 07:00 03/13/17 06:28 Novolog Mix 70/30 Vial SQ 20 unit BIDAC JERRICA Administration Lisinopril 20 mg 03/12/17 22:00 03/12/17 21:54 Prinivil PO 20 mg 2200 JERRICA Administration Lisinopril 40 mg 03/13/17 06:47 03/13/17 09:30 Prinivil PO 40 mg DAILY JERRICA Administration Metformin HCl 1,000 mg 03/12/17 10:00 03/13/17 06:29 Glucophage - PO 1,000 mg BIDAC JERRICA Administration Hhbwz-9-Dxsy Ethyl Esters 2 gm 03/13/17 22:00 Lovaza - PO BID JERRICA CBC, BMP 03/11/17 18:26 03/13/17 06:20 IMPRESSION ckd stage 1 Has nephrotic range proteinuria probably from diabetic nephropathy PLAN OK to dc on lisinopril, atorvastatin and lasix can follow up with me inmy office MV
[2017-03-13] MEDS ORDERED: ATORVASTATIN CA 40 MG TABLET (FP) PO SCH (22:00)
[2017-03-13] MEDS ORDERED: OMEGA-3 ACID ETHYL ESTERS (FATTY-ACIDS) 1 GM CAPSULE (FP) PO SCH (22:00)
== END 2017-03-13 15:41 | disposition home or self-care (01) ==
LOC: JER 14:12 → INTOOBSV 23:16 → UNDOADMOB 23:16 → JERBED 23:16 → UNDOADMIN 03-12 00:01 → JERBED 03-12 00:01 → J8W 03-12 04:19 → JERBED 03-12 04:19
PROVIDERS: ADMIT Internal Medicine; ATTEND Internal Medicine
PROC: 3E033GC Introduction of Other Therapeutic Substance into Peripheral Vein, Percutaneous Approach (ICD-10-PCS; principal; 2017-03-12)
PROC: 3E013VG Introduction of Insulin into Subcutaneous Tissue, Percutaneous Approach (ICD-10-PCS; 2017-03-12)
PROC: 3E013GC Introduction of Other Therapeutic Substance into Subcutaneous Tissue, Percutaneous Approach (ICD-10-PCS; 2017-03-12)
DX: R60.0 Localized edema (principal); E11.65 Type 2 diabetes mellitus with hyperglycemia; E11.43 Type 2 diabetes mellitus with diabetic autonomic (poly)neuropathy; Z79.4 Long term (current) use of insulin; Z79.84 Long term (current) use of oral hypoglycemic drugs; I10 Essential (primary) hypertension; E78.5 Hyperlipidemia, unspecified; F17.210 Nicotine dependence, cigarettes, uncomplicated; Z86.73 Personal history of transient ischemic attack (TIA), and cerebral infarction without residual deficits; E66.9 Obesity, unspecified; Z68.35 Body mass index [BMI] 35.0-35.9, adult; E88.09 Other disorders of plasma-protein metabolism, not elsewhere classified; R80.9 Proteinuria, unspecified; R81 Glycosuria; F10.10 Alcohol abuse, uncomplicated; N04.9 Nephrotic syndrome with unspecified morphologic changes
CPT/HCPCS: 36415; 71020-TC; 76775-TC; 80053; 80061; 80307; 81003; 81015; 82436; 83036; 83721; 83735; 83880; 84100; 84133; 84300; 84439; 84443; 85025; 87086; 87186; 93005; 93010; 93970-TC; 99284-25; G0378

== ENCOUNTER 2019-05-17 17:15 | Emergency (ER) | payer SELFPAY ==
[2019-05-17] MEDS ORDERED: ONDANSETRON 4 MG/2 ML VIAL IVPB ONE (17:39)
[2019-05-17] MEDS ORDERED: ONDANSETRON 4 MG/2 ML VIAL ONE ×2 (17:52→17:54)
[2019-05-17 17:53] VITALS: BMI 38.0
[2019-05-17 17:58] VITALS: TEMP 99.1
--- NOTE | 2019-05-17 18:49 | PDOC ---
Attending Attestation - Resident Resident Name: WangJulius - ED Attending Attestation I have performed the following: I have examined & evaluated the patient, The case was reviewed & discussed with the resident, I agree w/resident's findings & plan - HPI HPI: 05/17/19 18:50 52 yo obese gentleman PMHx DM-II, HTN, HLD, EtOH abuse, CVA - Physicial Exam PE: 05/17/19 18:51 Agree with the resident's HPI and PE as documented in the electronic medical record. NAD, well appearing, EOMI, PERRL, nl conjunctiva, anicteric; neck supple. lungs clear, RRR, abdomen soft nontender. No rebound, no guarding. Back nontender. BAKER x4, no focal neuro deficits. No peripheral edema. normal color for ethnicity , WWP. - Medical Decision Making 05/17/19 18:52 Vital Signs Temp Pulse Resp BP Pulse Ox 99.1 F 100 H 18 146/68 100 05/17/19 17:58 05/17/19 17:25 05/17/19 17:25 05/17/19 17:25 05/17/19 17:25 labs and lytes orderd, pending. baseline ESRD guaiac neg had smaller episode of emesis while here, which was at bedside. appears ice tea colored, mixed with old beans, but no coffee ground given zofran abdomen soft, nontender stool exam unremarkable by resident unlikely GIB, as more likely new abx (levaquin) side effect hydration completed HD today anticipate discharge, with c/w medications, H2 neri and abx as prescribed to finish course for bacteremia. f/u PCP and GI, stable for discharge if labs ok 05/18/19 12:28 05/18/19 12:28 Heart Score/ECG Review #1 ECG reviewed & interpreted by me at: 17:50 General ECG Interpretation: Sinus Rhythm, Normal Rate, Normal Intervals, No acute ischemic changes 05/17/19 19:07 normal rate 98 bpm
--- NOTE | 2019-05-17 18:51 | PDOC ---
History of Present Illness - General Chief Complaint: Coffee Ground Emesis Stated Complaint: GI BLEED Time Seen by Provider: 05/17/19 17:29 History Source: Patient Exam Limitations: No Limitations - History of Present Illness Initial Comments: HPI: 54 y/o male presenting to [facility] ER from dialysis after vomiting a large amount of dark emesis. Vomiting a small amount of tea colored emesis on arrival to this department. At time of interview, the pt denies symptoms; "I feel much better." Denies h/o of GI bleeds. Denies feeling nauseous, abd pain, chest pain , or SOB. Had two hard boiled eggs, saltless tortilla, and red beans at last meal. Of note, the pt was discharged yesterday from [facility] for blood stream infection believed to related to his dialysis shunt. Taking PO Levaquin. Medical Hx: - CKD, on HD - Insulin dependent diabetes Review of Systems: In addition to that documented in the HPI above, the additional ROS was obtained : Constitutional- Denies fevers or chills Head- Denies vision changes ENMT- Denies sore throat CV- Denies chest pain Resp- Denies SOB GI- Endorses vomiting. Denies diarrhea. - Denies painful urination MSK- Denies recent trauma Skin- Denies new rashes Neuro- Denies new numbness or tingling or weakness Endocrine- Denies polyuria Heme- Denies bleeding or bruising Physical Examination: Constitutional- Well-developed, well-nourished adult male in no acute distress or obvious discomfort. Found semi-fowlers on hospital bed. Answered all questions appropriately and completely. Head- Normocephalic. No obvious external signs of trauma. Cardiovascular / Chest- Regular rate and regular rhythm. No murmur, rubs, clicks , or gallops. Peripheral pulses- radial pulses full. Respiratory- Breathing unlabored. Equal chest rise and fall. Clear to auscultation bilaterally. No stridor, no wheezing, no rhonchi. Gastrointestinal- abdomen is soft, non-tender, non-distended. Tea colored emesis at bedside. Female Rectal: Good sphincter tone with no anal, perineal or rectal lesions. Brown stool. No melena or bright red blood. RN chaperoned exam. Neuro- Alert and oriented x4. Moving all four extremities spontaneously. Skin- Warm, dry, and intact. Psych- Affect- appropriate. Mood- normal. Speech was non-labored, non- pressured. MDM: *Reviewed vital signs, nursing notes, and prior visit documentation (if available). 54 y/o male presenting with tea colored emesis x2. Afebrile. Vitals unremarkable for hypotension or tachycardia. Physical exam as described above. SFOB negative. Low suspicion for acute GI bleed. Suspect acute gastritis versus antibiotic side effect. Low suspicion for acute infection without fever, tachycardia, or hypotension. Ordered Zofran. 17 May 2019 19:13 PM Pt signed out to resident Dr. Morales after he was verbally appraised of the pts HPI, current ED course, and plan of management. Will Will f/u on pending labs. Anticipate discharge home with outpatient GI follow up. Julius Wang M.D., PGY2 Emergency Medicine Resident Past History - Past Medical History Allergies/Adverse Reactions: Allergies Allergy/AdvReac Type Severity Reaction Status Date / Time No Known Allergies Allergy Verified 05/17/19 17:40 Home Medications: Ambulatory Orders Aspirin [ASA -] 81 mg PO DAILY 05/17/19 Atorvastatin Ca [Lipitor] 10 mg PO HS 05/17/19 Carvedilol 25 mg PO BID 05/17/19 Hydralazine HCl 25 mg PO TID 05/17/19 Insulin Detemir [Levemir Flextouch] 20 unit SQ DAILY 05/17/19 Loratadine 10 mg PO DAILY 05/17/19 Ranitidine HCl 150 mg PO BID 05/17/19 Sevelamer HCl 1,600 mg PO TID 05/17/19 levoFLOXacin [Levaquin -] 250 mg PO ASDIR 05/17/19 Anemia: No Asthma: No COPD: No Diabetes: Yes Dialysis: Yes ([facility], [facility], [place]) HTN: Yes Hypercholesterolemia: Yes - Immunization History Immunization Up to Date: Yes - Psycho Social/Smoking Cessation Hx Smoking History: Never smoked Have you smoked in the past 12 months: No Number of Cigarettes Smoked Daily: 5 Hx Alcohol Use: No Drug/Substance Use Hx: No Substance Use Type: None *Physical Exam - Vital Signs Last Vital Signs Temp Pulse Resp BP Pulse Ox 99.1 F 100 H 18 146/68 100 05/17/19 17:58 05/17/19 17:25 05/17/19 17:25 05/17/19 17:25 05/17/19 17:25 ED Treatment Course - LABORATORY CBC & Chemistry Diagram: 05/17/19 18:46 - ADDITIONAL ORDERS Additional order review: Laboratory Results 05/17/19 17:55 Stool Occult Blood Negative Discharge - Discharge Information Problems reviewed: Yes Clinical Impression/Diagnosis: Vomiting - Follow up/Referral - Patient Discharge Instructions - Post Discharge Activity
--- NOTE | 2019-05-17 19:20 | PDOC ---
*Physical Exam - Vital Signs Last Vital Signs Temp Pulse Resp BP Pulse Ox 99.1 F 100 H 18 146/68 100 05/17/19 17:58 05/17/19 17:25 05/17/19 17:25 05/17/19 17:25 05/17/19 17:25 ED Treatment Course - LABORATORY CBC & Chemistry Diagram: 05/17/19 21:10 05/17/19 18:46 - ADDITIONAL ORDERS Additional order review: Laboratory Results 05/17/19 17:55 Stool Occult Blood Negative - Medications Given in the ED: ED Medications Discontinued Medications Generic Name Dose Route Start Last Admin Trade Name Renéq PRN Reason Stop Dose Admin Ondansetron HCl 8 mg 05/17/19 17:39 05/17/19 18:17 Zofran Injection IVPB 05/17/19 17:40 8 mg ONCE ONE Administration Medical Decision Making - Medical Decision Making A call was placed to Dr. Nuno service to arrange follow up appointment for the patient. Hemoglobin was 9.8 on initial draw and on repeat was 9.2 2.5 hours afterwards. The patient has no symptomatic complaints and denies the following: weakness, lightheadedness, chest pain, SOB, abdominal pain, hematochezia, and melena. Stool occult was negative. The patient was given strict return precautions and follow up with GI (Dr. Bermudez) He was stable at discharge with normal vitals. Able to ambulate on their own volition. Discharge - Discharge Information Problems reviewed: Yes Clinical Impression/Diagnosis: Vomiting Condition: Improved Disposition: HOME - Admission No - Follow up/Referral Referrals: Kavitha Bermudez MD [Staff Physician] - [facility] [Provider Group] - Patient Discharge Instructions Patient Printed Discharge Instructions: DI for Vomiting -- Adult Additional Instructions: You were seen in the emergency department for your vomiting episodes. Your hemoglobin was shown to be 9.8 on initial draw and 9.2 on repeat draw with no blood seen in the stool. Please follow up with Dr. Bermudez within 24 hours after discharge. Please follow up with your primary doctor or the one referred to you within 1 week after discharge. Thank you. Please return if you have worsening symptoms or new concerning symptoms. Thank you. - Post Discharge Activity
[2019-05-17 19:26] LABS: ALBUMIN 2.6 g/dl (3.4-5.0); BILIRUBIN,TOTAL 0.4 mg/dL (0.2-1); BLOOD UREA NITROGEN 16.4 mg/dL (7-18); CALCIUM 8.5 mg/dL (8.5-10.1); POTASSIUM 3.8 mmol/L (3.5-5.1); TOT PROT 6.1 g/dl (6.4-8.2)
[2019-05-17 19:47] LABS: EOS % 0.6 % (0-4.5); HEMATOCRIT 28.5 % (35.4-49); HEMOGLOBIN 9.8 GM/dL (11.7-16.9); LYMPH % 10.4 % (8-40); MCH 31.2 pg (25.7-33.7); MCHC 34.2 g/dl (32.0-35.9); MEAN CELL VOLUME 91.2 fl (80-96); MEAN PLT VOLUME 6.6 fl (7.5-11.1); MONO % 6.8 % (3.8-10.2); NEUT % 80.2 % (42.8-82.8); PLATELET COUNT 416 K/MM3 (134-434); RBC 3.13 M/mm3 (4.00-5.60); RDW 17.2 % (11.9-15.9)
[2019-05-17 20:02] LABS: INR 1.11 (0.83-1.09); PROTHROMBIN TIME (PATIENT) 13.1 SEC (9.7-13.0)
[2019-05-17 20:04] LABS: ACTIVATED PTT 32.3 SECONDS (25.2-36.5)
[2019-05-17] MEDS ORDERED: PANTOPRAZOLE SODIUM 40 MG VIAL IVPUSH ONE (20:15)
[2019-05-17] MEDS ORDERED: PANTOPRAZOLE SODIUM 40 MG/100 ML BAG IVPB ONE (20:22)
[2019-05-17 21:19] LABS: BASO % 0.6 % (0-2.0); EOS % 0.8 % (0-4.5); HEMOGLOBIN 9.2 GM/dL (11.7-16.9); LYMPH % 14.9 % (8-40); MEAN CELL VOLUME 91.1 fl (80-96); MEAN PLT VOLUME 6.3 fl (7.5-11.1); MONO % 7.4 % (3.8-10.2); NEUT % 76.3 % (42.8-82.8); PLATELET COUNT 388 K/MM3 (134-434); RBC 2.97 M/mm3 (4.00-5.60); RDW 17.2 % (11.9-15.9); WHITE BLOOD COUNT 8.6 K/mm3 (4.0-10.0)
[2019-05-18 00:04] VITALS: BP 137/73; PULSE 95
--- NOTE | 2019-05-18 13:31 | EKG ---
Test Reason : Blood Pressure : / mmHG Vent. Rate : 098 BPM Atrial Rate : 098 BPM P-R Int : 148 ms QRS Dur : 086 ms QT Int : 364 ms P-R-T Axes : 030 -18 049 degrees QTc Int : 464 ms NORMAL SINUS RHYTHM NORMAL ECG WHEN COMPARED WITH ECG OF 11-MAR-2017 18:54, VENT. RATE HAS INCREASED BY 37 BPM T WAVE INVERSION NO LONGER EVIDENT IN INFERIOR LEADS QT HAS LENGTHENED Confirmed by ASHLEY NETTLES MD ([id number]) on 05/18/2019 1:31:10 PM Referred By: Confirmed By:ASHLEY NETTLES MD
== END 2019-05-17 23:30 | disposition home or self-care (01) ==
LOC: JER 17:15
PROC: 3E033GC Introduction of Other Therapeutic Substance into Peripheral Vein, Percutaneous Approach (ICD-10-PCS; principal; 2019-05-17)
PROC: 3E033GC Introduction of Other Therapeutic Substance into Peripheral Vein, Percutaneous Approach (ICD-10-PCS; 2019-05-17)
DX: R11.10 Vomiting, unspecified (principal); I12.0 Hypertensive chronic kidney disease with stage 5 chronic kidney disease or end stage renal disease; E11.22 Type 2 diabetes mellitus with diabetic chronic kidney disease; N18.6 End stage renal disease; N17.8 Other acute kidney failure; Z99.2 Dependence on renal dialysis; Z79.4 Long term (current) use of insulin; E78.00 Pure hypercholesterolemia, unspecified; Z86.73 Personal history of transient ischemic attack (TIA), and cerebral infarction without residual deficits; E66.9 Obesity, unspecified; Z68.38 Body mass index [BMI] 38.0-38.9, adult; Z79.82 Long term (current) use of aspirin; R78.81 Bacteremia; Z79.2 Long term (current) use of antibiotics
CPT/HCPCS: 36415; 80053; 82272; 85025; 85610; 85730; 93005; 93010; 99284-25

== ENCOUNTER 2021-01-28 17:31 | Inpatient (IN) | payer OTHER ==
[~2021-01-28 17:31] MED LIST: SODIUM CHLORIDE 250 ML IV PRN
[2021-01-28] MEDS ORDERED: morphine SULFATE 4 MG/ML VIAL IVPUSH ONE (20:15)
[2021-01-28] MEDS ORDERED: morphine SULFATE 4 MG/ML VIAL ONE (20:19)
[2021-01-28 20:38] LABS: BASO % 1.3 % (0-2.0); EOS % 1.6 % (0-4.5); HEMOGLOBIN 10.2 GM/dL (11.7-16.9); LYMPH % 6.5 % (8-40); MCH 32.4 pg (25.7-33.7); MCHC 32.8 g/dl (32.0-35.9); MEAN CELL VOLUME 98.8 fl (80-96); MEAN PLT VOLUME 8.7 fl (7.5-11.1); MONO % 11.6 % (3.8-10.2); PLATELET COUNT 185 10^3/uL (134-434); RBC 3.13 M/mm3 (4.00-5.60); RDW 16.5 % (11.9-15.9); WHITE BLOOD COUNT 9.2 K/mm3 (4.0-10.0)
[2021-01-28 20:44] LABS: INR 1.2 (0.83-1.09); PROTHROMBIN TIME (PATIENT) 14.7 SEC (9.7-13.0)
[2021-01-28 20:47] LABS: ACTIVATED PTT 31.1 SECONDS (25.2-36.5)
[2021-01-28 21:03] LABS: CHLORIDE 98 mmol/L (98-107); SODIUM 131 mmol/L (136-145)
[2021-01-28 21:05] LABS: ALBUMIN 3.2 g/dl (3.4-5.0); CALCIUM 8.2 mg/dL (8.5-10.1); CO2 19 mmol/L (21-32)
[2021-01-28 21:06] LABS: BLOOD UREA NITROGEN 76.6 mg/dL (7-18); GLUCOSE,RANDOM 100 mg/dL (74-106)
[2021-01-28 21:09] LABS: CREATININE 6.9 mg/dL (0.55-1.3); SGOT/AST 44 U/L (15-37); SGPT/ALT 62 U/L (13-61)
[2021-01-28 21:10] LABS: BILIRUBIN,TOTAL 0.6 mg/dL (0.2-1); TOT PROT 7.2 g/dl (6.4-8.2)
[2021-01-28 21:11] LABS: ALK PHOS 570 U/L (45-117)
[2021-01-28 21:13] LABS: ANION GAP 14 MMOL/L (8-16)
[2021-01-28] MEDS ORDERED: DEXTROSE 50%-WATER - 25 GM/50 ML VIAL IVPUSH ONE (21:17)
[2021-01-28] MEDS ORDERED: CALCIUM GLUCONATE 10% - 1,000 MG/10 ML VIAL IVPUSH ONE (21:17)
[2021-01-28] MEDS ORDERED: INSULIN REGULAR HUMAN 100 UNITS/ML *VIAL IVPUSH ONE (21:17)
[2021-01-28] MEDS ORDERED: SODIUM ZIRCONIUM CYCLOSILICATE (LOKELMA) 5 GM PACKET PO ONE (21:17)
[2021-01-28] MEDS ORDERED: METOPROLOL TARTRATE 5 MG/5 ML VIAL IVPUSH ONE (21:52)
[2021-01-28] MEDS ORDERED: METOPROLOL TARTRATE 5 MG/5 ML VIAL ONE (22:08)
[2021-01-28] MEDS ORDERED: SODIUM ZIRCONIUM CYCLOSILICATE (LOKELMA) 5 GM PACKET ONE (22:08)
[2021-01-28] MEDS ORDERED: CALCIUM GLUCONATE 10% - 1,000 MG/10 ML VIAL ONE (22:08)
[2021-01-28] MEDS ORDERED: DEXTROSE 50%-WATER - 25 GM/50 ML VIAL ONE (22:08)
[2021-01-28] MEDS ORDERED: PIPERACILLIN/TAZOB 2.25 GM 2.25 GM in DEXTROSE 5%-WATER - 50 ML IVPB ONE (23:50)
[2021-01-28] MEDS ORDERED: VANCOMYCIN 1 GM in D5W (PRE-DOCKED) 1,000 MG/250 ML IVPB ONE (23:51)
[2021-01-28 23:57] LABS: CALCIUM 8.1 mg/dL (8.5-10.1)
[2021-01-28 23:58] LABS: BLOOD UREA NITROGEN 70.7 mg/dL (7-18)
[2021-01-29 00:01] LABS: CREATININE 7.2 mg/dL (0.55-1.3)
[2021-01-29] MEDS ORDERED: HEPARIN NA (PORCINE) 5,000 UNITS/ML 1ML VIAL IVPUSH PRN ×2 (00:04)
[2021-01-29] MEDS ORDERED: HEPARIN - 25,000 UNIT in SODIUM CHLORIDE 495 ML IV SCH (00:15)
[2021-01-29] MEDS ORDERED: VANCOMYCIN 1 GRAM (PRE-DOCKED) 1,000 MG/250 ML BAG IVPB ONE (00:35)
[2021-01-29] MEDS ORDERED: PIPERACILLIN/TAZOB 2.25 GM 2.25 GM/50 ML BAG IVPB ONE (00:35)
[2021-01-29] MEDS ORDERED: HEPARIN NA (PORCINE) 5,000 UNITS/ML 1ML VIAL ONE ×2 (00:35→12:39)
[2021-01-29] MEDS ORDERED: MORPHINE SULFATE 2 MG/ML VIAL IVPUSH ONE (02:16)
[2021-01-29] MEDS ORDERED: MORPHINE SULFATE 2 MG/ML VIAL ONE ×2 (02:27→08:03)
[2021-01-29] MEDS ORDERED: METOPROLOL TARTRATE 5 MG/5 ML VIAL IVPUSH ONE ×2 (04:29→07:56)
[2021-01-29] MEDS ORDERED: METOPROLOL TARTRATE 5 MG/5 ML VIAL ONE (04:34)
[2021-01-29] MEDS ORDERED: MORPHINE SULFATE 2 MG/ML VIAL IM PRN ×2 (07:56→17:54)
[2021-01-29 08:10] LABS: BASO % 1.8 % (0-2.0); EOS % 1.3 % (0-4.5); HEMATOCRIT 32.7 % (35.4-49); HEMOGLOBIN 10.5 GM/dL (11.7-16.9); LYMPH % 6.3 % (8-40); MCH 31.9 pg (25.7-33.7); MEAN CELL VOLUME 99.7 fl (80-96); MEAN PLT VOLUME 8.9 fl (7.5-11.1); MONO % 9.9 % (3.8-10.2); NEUT % 80.7 % (42.8-82.8); PLATELET COUNT 198 10^3/uL (134-434); RBC 3.28 M/mm3 (4.00-5.60); RDW 16.5 % (11.9-15.9); WHITE BLOOD COUNT 8.7 K/mm3 (4.0-10.0)
[2021-01-29 08:26] LABS: CHLORIDE 96 mmol/L (98-107); SODIUM 130 mmol/L (136-145)
[2021-01-29 08:28] LABS: ALBUMIN 3.1 g/dl (3.4-5.0); BLOOD UREA NITROGEN 80.2 mg/dL (7-18); CALCIUM 8.6 mg/dL (8.5-10.1); CO2 19 mmol/L (21-32)
[2021-01-29 08:29] LABS: GLUCOSE,RANDOM 103 mg/dL (74-106)
[2021-01-29 08:31] LABS: SGPT/ALT 58 U/L (13-61)
[2021-01-29 08:32] LABS: CREATININE 7.2 mg/dL (0.55-1.3); SGOT/AST 39 U/L (15-37)
[2021-01-29 08:33] LABS: BILIRUBIN,TOTAL 0.8 mg/dL (0.2-1); TOT PROT 7.3 g/dl (6.4-8.2)
[2021-01-29 08:58] LABS: ALK PHOS 488 U/L (45-117); ANION GAP 15 MMOL/L (8-16)
[2021-01-29] MEDS ORDERED: SODIUM POLYSTYRENE SULFONATE 15 GM/60 ML BOTTLE PO ONE (09:57)
[2021-01-29] MEDS ORDERED: SODIUM CHLORIDE 250 ML IV PRN ×2 (10:51→17:54)
[2021-01-29] MEDS ORDERED: SODIUM POLYSTYRENE SULFONATE 15 GM/60 ML BOTTLE ONE (11:51)
[2021-01-29] MEDS ORDERED: LIDOCAINE HCL 1%, 10 MG/ML (20ML VIAL) ONE (12:39)
[2021-01-29] MEDS ORDERED: LIDOCAINE HCL 1%, 10 MG/ML (20ML VIAL) INF ONE (15:02)
[2021-01-29] MEDS ORDERED: IOVERSOL 320 MG/ML ML IV ONE (15:03)
[2021-01-29] MEDS ORDERED: ONDANSETRON 4 MG/2 ML VIAL IVPUSH PRN (16:06)
[2021-01-29] MEDS ORDERED: CLOPIDOGREL BISULFATE 75 MG TABLET (FP) PO SCH (17:15)
[2021-01-29] MEDS ORDERED: CLOPIDOGREL BISULFATE 75 MG TABLET (FP) ONE (18:07)
[2021-01-29] MEDS ORDERED: HYDROmorphone HCl 2 MG/ML VIAL ONE (18:36)
[2021-01-29] MEDS ORDERED: HYDROmorphone HCl 2 MG/ML VIAL IVPUSH ONE (19:37)
[2021-01-30] MEDS ORDERED: MORPHINE SULFATE 2 MG/ML VIAL IM ONE (02:00)
[2021-01-30 02:33] VITALS: BMI 36.2
[2021-01-30] MEDS: CLOPIDOGREL BISULFATE 75 MG TABLET (FP) PO SCH ×2 (08:15→10:06)
[2021-01-30] MEDS: oxyCODONE HCL 5 MG TABLET PO PRN ×3 (11:35→22:49)
[2021-01-30 12:21] LABS: HEMATOCRIT 30.5 % (35.4-49); HEMOGLOBIN 9.8 GM/dL (11.7-16.9); MCH 31.9 pg (25.7-33.7); MCHC 32.3 g/dl (32.0-35.9); MEAN CELL VOLUME 98.9 fl (80-96); MEAN PLT VOLUME 8.3 fl (7.5-11.1); PLATELET COUNT 202 10^3/uL (134-434); RBC 3.09 M/mm3 (4.00-5.60)
[2021-01-30 12:53] LABS: ALBUMIN 2.9 g/dl (3.4-5.0); BLOOD UREA NITROGEN 77.7 mg/dL (7-18); CALCIUM 8.5 mg/dL (8.5-10.1)
[2021-01-30 12:58] LABS: BILIRUBIN,TOTAL 0.6 mg/dL (0.2-1); TOT PROT 6.8 g/dl (6.4-8.2)
[2021-01-30 13:03] LABS: CREATININE 7.4 mg/dL (0.55-1.3)
[2021-01-30] MEDS ORDERED: HEPARIN NA (PORCINE) 5,000 UNITS/ML 1ML VIAL IVPUSH PRN ×2 (16:38)
[2021-01-30] MEDS: HEPARIN SOD,PORK IN 0.45% NACL 25,000 UNIT/500 ML INFUS.BAG IVPB SCH (17:30)
[2021-01-30] MEDS: ONDANSETRON 4 MG/2 ML VIAL IVPUSH PRN (22:08)
[2021-01-31] MEDS: ONDANSETRON 4 MG/2 ML VIAL IVPUSH PRN (06:55)
[2021-01-31] MEDS ORDERED: SODIUM CHLORIDE 250 ML IV PRN (07:27)
[2021-01-31] MEDS ORDERED: EPOETIN ALFA-EPBX 3,000 UNIT/ML VIAL SQ ONE (08:00)
[2021-01-31 08:18] LABS: HEMATOCRIT 30.3 % (35.4-49); MCH 32.4 pg (25.7-33.7); MEAN CELL VOLUME 98.2 fl (80-96); MEAN PLT VOLUME 8.1 fl (7.5-11.1); PLATELET COUNT 210 10^3/uL (134-434); RBC 3.08 M/mm3 (4.00-5.60); RDW 16.2 % (11.9-15.9); WHITE BLOOD COUNT 8.1 K/mm3 (4.0-10.0)
[2021-01-31] MEDS: oxyCODONE HCL 5 MG TABLET PO PRN ×3 (14:56→22:49)
[2021-01-31] MEDS: HEPARIN SOD,PORK IN 0.45% NACL 25,000 UNIT/500 ML INFUS.BAG IVPB SCH (16:40)
[2021-01-31 17:10] LABS: HEP B CORE AB, TOT Negative (Negative)
[2021-02-01] MEDS: HEPARIN SOD,PORK IN 0.45% NACL 25,000 UNIT/500 ML INFUS.BAG IVPB SCH ×2 (03:21→16:45)
[2021-02-01] MEDS: oxyCODONE HCL 5 MG TABLET PO PRN ×3 (06:05→21:13)
[2021-02-01 08:10] LABS: HEMATOCRIT 30.8 % (35.4-49); MCH 32.2 pg (25.7-33.7); MCHC 32.6 g/dl (32.0-35.9); MEAN CELL VOLUME 98.5 fl (80-96); MEAN PLT VOLUME 8.1 fl (7.5-11.1); PLATELET COUNT 227 10^3/uL (134-434); RBC 3.12 M/mm3 (4.00-5.60); RDW 15.9 % (11.9-15.9); WHITE BLOOD COUNT 7.9 K/mm3 (4.0-10.0)
[2021-02-01] MEDS: VALSARTAN 40 MG TABLET PO SCH (11:12)
[2021-02-01] MEDS ORDERED: ONDANSETRON 4 MG/2 ML VIAL IVPUSH ONE (17:31)
[2021-02-02] MEDS: oxyCODONE HCL 5 MG TABLET PO PRN (04:25)
[2021-02-02] MEDS: HEPARIN SOD,PORK IN 0.45% NACL 25,000 UNIT/500 ML INFUS.BAG IVPB SCH (06:49)
[2021-02-02 08:08] LABS: HEMATOCRIT 32.7 % (35.4-49); HEMOGLOBIN 10.6 GM/dL (11.7-16.9); MCH 32.1 pg (25.7-33.7); MCHC 32.4 g/dl (32.0-35.9); MEAN CELL VOLUME 99.2 fl (80-96); MEAN PLT VOLUME 8.3 fl (7.5-11.1); PLATELET COUNT 277 10^3/uL (134-434); RDW 15.9 % (11.9-15.9); WHITE BLOOD COUNT 8.8 K/mm3 (4.0-10.0)
[2021-02-02 08:30] LABS: CHLORIDE 95 mmol/L (98-107); SODIUM 132 mmol/L (136-145)
[2021-02-02 08:37] LABS: ANION GAP 14 MMOL/L (8-16); CO2 22 mmol/L (21-32); GLUCOSE,RANDOM 89 mg/dL (74-106)
[2021-02-02 08:42] LABS: CREATININE 8.1 mg/dL (0.55-1.3)
[2021-02-02] MEDS: APIXABAN 5 MG TABLET PO SCH ×2 (10:29→21:04)
[2021-02-02] MEDS: VALSARTAN 40 MG TABLET PO SCH (10:29)
[2021-02-02] MEDS ORDERED: EPOETIN ALFA-EPBX 4,000 UNIT/ML VIAL SQ ONE (12:52)
[2021-02-02] MEDS ORDERED: SODIUM ZIRCONIUM CYCLOSILICATE (LOKELMA) 5 GM PACKET PO SCH (13:00)
[2021-02-02] MEDS ORDERED: SODIUM ZIRCONIUM CYCLOSILICATE (LOKELMA) 5 GM PACKET PO ONE (14:15)
[2021-02-02] MEDS ORDERED: ONDANSETRON 4 MG/2 ML VIAL IVPUSH ONE (21:40)
[2021-02-03] MEDS: oxyCODONE HCL 5 MG TABLET PO PRN ×2 (06:06→12:41)
[2021-02-03 06:40] LABS: HEMATOCRIT 32.2 % (35.4-49); HEMOGLOBIN 10.5 GM/dL (11.7-16.9); MCHC 32.5 g/dl (32.0-35.9); MEAN CELL VOLUME 98.3 fl (80-96); MEAN PLT VOLUME 7.7 fl (7.5-11.1); PLATELET COUNT 297 10^3/uL (134-434); RBC 3.28 M/mm3 (4.00-5.60); WHITE BLOOD COUNT 9.8 K/mm3 (4.0-10.0)
[2021-02-03 12:15] LABS: N-TERMINAL BNP 29757.7 pg/ml (5-125)
[2021-02-03] MEDS: VALSARTAN 40 MG TABLET PO SCH (12:43)
[2021-02-03] MEDS ORDERED: ONDANSETRON 4 MG TABLET PO PRN (12:47)
[2021-02-03] MEDS ORDERED: PT OWN MED DRAWER 7, Y5N ONE (12:48)
[2021-02-03] MEDS: APIXABAN 5 MG TABLET PO SCH ×2 (12:48→22:14)
[2021-02-03] MEDS ORDERED: ONDANSETRON 4 MG/2 ML VIAL ONE (16:21)
[2021-02-04] MEDS: oxyCODONE HCL 5 MG TABLET PO PRN ×2 (00:55→18:02)
[2021-02-04] MEDS ORDERED: METOPROLOL TARTRATE 5 MG/5 ML VIAL IVPUSH ONE (01:23)
[2021-02-04 07:47] LABS: HEMATOCRIT 32.2 % (35.4-49); HEMOGLOBIN 10.6 GM/dL (11.7-16.9); MCH 32.2 pg (25.7-33.7); MCHC 32.9 g/dl (32.0-35.9); MEAN CELL VOLUME 97.7 fl (80-96); MEAN PLT VOLUME 7.3 fl (7.5-11.1); PLATELET COUNT 307 10^3/uL (134-434); RBC 3.29 M/mm3 (4.00-5.60); RDW 16.3 % (11.9-15.9); WHITE BLOOD COUNT 9.8 K/mm3 (4.0-10.0)
[2021-02-04] MEDS: APIXABAN 5 MG TABLET PO SCH (09:12)
[2021-02-04] MEDS: VALSARTAN 40 MG TABLET PO SCH (09:12)
[2021-02-04 20:57] VITALS: BP 126/82; PULSE 120; TEMP 97.7
== END 2021-02-04 21:00 | DRG 181 ==
LOC: JER 17:31 → JERBED 01-29 00:01 → J4W 01-29 20:11
PROVIDERS: ADMIT Internal Medicine; ATTEND Internal Medicine
PROC: B40DYZZ Plain Radiography of Aorta and Bilateral Lower Extremity Arteries using Other Contrast (ICD-10-PCS; 2021-01-29)
PROC: B40GYZZ Plain Radiography of Left Lower Extremity Arteries using Other Contrast (ICD-10-PCS; 2021-01-29)
PROC: 5A1D70Z Performance of Urinary Filtration, Intermittent, Less than 6 Hours Per Day (ICD-10-PCS; 2021-01-29)
PROC: 047S3ZZ Dilation of Left Posterior Tibial Artery, Percutaneous Approach (ICD-10-PCS; principal; 2021-01-29 14:00)
DX: E11.51 Type 2 diabetes mellitus with diabetic peripheral angiopathy without gangrene (principal); I13.2 Hypertensive heart and chronic kidney disease with heart failure and with stage 5 chronic kidney disease, or end stage renal disease; E11.22 Type 2 diabetes mellitus with diabetic chronic kidney disease; N18.6 End stage renal disease; F10.10 Alcohol abuse, uncomplicated; E78.5 Hyperlipidemia, unspecified; Z86.73 Personal history of transient ischemic attack (TIA), and cerebral infarction without residual deficits; I48.0 Paroxysmal atrial fibrillation; E87.5 Hyperkalemia; I45.10 Unspecified right bundle-branch block; E66.9 Obesity, unspecified; Z99.2 Dependence on renal dialysis; I50.9 Heart failure, unspecified; I25.10 Atherosclerotic heart disease of native coronary artery without angina pectoris; E78.2 Mixed hyperlipidemia; D63.1 Anemia in chronic kidney disease; Z79.4 Long term (current) use of insulin
CPT/HCPCS: 36415; 71045-TC-FY; 75635-TC; 76000-TC-FY; 80048; 80053; 80061; 82962; 83036; 83721; 83880; 84443; 84484; 85025; 85027; 85610; 85730; 86704; 86706; 86707; 86708; 86709; 86803; 86850; 86900; 86901; 87040; 87340; 93005; 93010; 93880-TC; 94760; 99285-25; C9803; J1644; Q5106; Q9967; U0003; U0005

== ENCOUNTER 2021-02-12 06:10 | Inpatient (IN) | payer OTHER ==
[2021-02-12] MEDS ORDERED: SODIUM CHLORIDE 0.9% 500 ML INFUS.BAG IV ONE (06:46)
[2021-02-12] MEDS ORDERED: VANCOMYCIN 1 GRAM (PRE-DOCKED) 1,000 MG/250 ML BAG IVPB ONE (06:52)
[2021-02-12] MEDS ORDERED: CLINDAMYCIN 600MG PREMIX IVPB 600 MG/50 ML BAG IVPB ONE (06:54)
[2021-02-12] MEDS ORDERED: PIPERACILLIN/TAZOB 4.5 GM 4.5 GM in DEXTROSE 5%-WATER 100 ML IVPB ONE (07:22)
[2021-02-12] MEDS ORDERED: PIPERACILLIN/TAZOB 4.5 GM 4.5 GM/100 ML BAG IVPB ONE (07:33)
[2021-02-12 07:47] LABS: BASO % 0.2 % (0-2.0); HEMATOCRIT 29.5 % (35.4-49); HEMOGLOBIN 9.5 GM/dL (11.7-16.9); LYMPH % 1.3 % (8-40); MCH 32.1 pg (25.7-33.7); MCHC 32.3 g/dl (32.0-35.9); MEAN CELL VOLUME 99.5 fl (80-96); MEAN PLT VOLUME 8.7 fl (7.5-11.1); MONO % 4.2 % (3.8-10.2); NEUT % 94.3 % (42.8-82.8); PLATELET COUNT 287 10^3/uL (134-434); RBC 2.96 M/mm3 (4.00-5.60); RDW 16.2 % (11.9-15.9)
[2021-02-12 07:49] LABS: INR 2.35 (0.83-1.09); PROTHROMBIN TIME (PATIENT) 27.7 SEC (9.7-13.0); WHITE BLOOD COUNT 30.6 K/mm3 (4.0-10.0)
[2021-02-12 07:55] LABS: CHLORIDE 92 mmol/L (98-107); SODIUM 137 mmol/L (136-145)
[2021-02-12 07:57] LABS: ALBUMIN 2.4 g/dl (3.4-5.0); ANION GAP 21 MMOL/L (8-16); CO2 25 mmol/L (21-32); GLUCOSE,RANDOM 324 mg/dL (74-106)
[2021-02-12] MEDS ORDERED: ACETAMINOPHEN 1000 MG/100 ML VIAL (NON FORMULARY) IVPB ONE (07:57)
[2021-02-12 07:59] LABS: SGPT/ALT 14 U/L (13-61)
[2021-02-12 08:00] LABS: SGOT/AST 19 U/L (15-37)
[2021-02-12] MEDS ORDERED: ALBUTEROL SO4 0.5 % INH SOLN 2.5 MG/0.5 ML VIAL.NEB. NEB ONE (08:00)
[2021-02-12] MEDS ORDERED: INSULIN REGULAR HUMAN 100 UNITS/ML *VIAL IVPUSH ONE (08:01)
[2021-02-12 08:02] LABS: BILIRUBIN,TOTAL 0.7 mg/dL (0.2-1); TOT PROT 6.7 g/dl (6.4-8.2)
[2021-02-12] MEDS ORDERED: DEXTROSE 50%-WATER - 25 GM/50 ML VIAL IVPUSH ONE (08:02)
[2021-02-12] MEDS ORDERED: CALCIUM GLUCONATE 10% - 1,000 MG/10 ML VIAL IVPUSH ONE (08:05)
[2021-02-12 08:11] LABS: LACTIC ACID 3.1 mmol/L (0.4-2.0)
[2021-02-12 08:12] LABS: ALK PHOS 252 U/L (45-117); BLOOD UREA NITROGEN 112.6 mg/dL (7-18); CALCIUM 9.6 mg/dL (8.5-10.1); CREATININE 10.3 mg/dL (0.55-1.3)
[2021-02-12] MEDS ORDERED: PANTOPRAZOLE SODIUM 40 MG VIAL IVPUSH ONE (08:26)
[2021-02-12 08:42] LABS: VENOUS BASE EXCESS 0.3 mmol/L (-2-2); VENOUS O2 SATURATION 66.9 % (70-80); VENOUS PCO2 49.2 mmHg (38-52); VENOUS PH 7.346 (7.310-7.410)
[2021-02-12] MEDS ORDERED: ACETAMINOPHEN INJECTION 100 ML IVPB ONE (08:48)
[2021-02-12] MEDS ORDERED: DEXTROSE 50%-WATER 25 GM/50 ML DISP.SYRIN ONE (08:54)
[2021-02-12] MEDS ORDERED: CALCIUM GLUCONATE 10% - 1,000 MG/10 ML VIAL ONE (08:54)
[2021-02-12] MEDS ORDERED: PANTOPRAZOLE SODIUM 40 MG/100 ML BAG IVPB ONE (08:55)
[2021-02-12] MEDS ORDERED: INSULIN REGULAR HUMAN 100 UNITS/ML *VIAL ONE (08:55)
[2021-02-12] MEDS ORDERED: PANTOPRAZOLE SODIUM 40 MG VIAL ONE (08:55)
[2021-02-12 09:00] LABS: ANISOCYTOSIS 1+; MACROCYTOSIS 1+; PLATELET ESTIMATE NORMAL
[2021-02-12] MEDS ORDERED: LIDOCAINE HCL 2% (20ML MULTI-DOSE VIAL) ONE (11:04)
[2021-02-12] MEDS ORDERED: LACTATED RINGERS SOLUTION 1000 ML INFUS.BAG IV ONE (11:33)
[2021-02-12] MEDS ORDERED: SODIUM CHLORIDE 1,000 ML IV SCH (12:00)
[2021-02-12] MEDS ORDERED: MUPIROCIN 2% TOPICAL OINTMENT FOR DECOLONIZATION NS SCH (12:00)
[2021-02-12] MEDS ORDERED: ACETAMINOPHEN 325 MG TABLET (FP) PO PRN (12:00)
[2021-02-12] MEDS ORDERED: VANCOMYCIN 1 GM in D5W (PRE-DOCKED) 1,000 MG/250 ML IVPB ONE (12:07)
[2021-02-12] MEDS ORDERED: PIPERACILLIN/TAZOB 3.375 GM 3.375 GM in DEXTROSE 5%-WATER - 50 ML IVPB SCH ×3 (12:15→18:00)
[2021-02-12] MEDS: METOPROLOL TARTRATE 5 MG/5 ML VIAL IVPUSH PRN (12:56)
[2021-02-12 13:42] LABS: LACTIC ACID 2.7 mmol/L (0.4-2.0)
[2021-02-12] MEDS ORDERED: SODIUM CHLORIDE 250 ML IV PRN (14:09)
[2021-02-12] MEDS ORDERED: EPOETIN ALFA-EPBX 4,000 UNIT/ML VIAL SQ ONE (14:15)
[2021-02-12] MEDS ORDERED: dilTIAZem HCL 25 MG/5 ML - 5 ML VIAL IVPUSH ONE (15:11)
[2021-02-12] MEDS ORDERED: METOPROLOL TARTRATE 5 MG/5 ML VIAL IVPUSH ONE ×2 (15:22→15:29)
[2021-02-12] MEDS ORDERED: oxyCODONE HCL 5 MG TABLET PO PRN (16:13)
[2021-02-12] MEDS ORDERED: PIPERACILLIN/TAZOBACTAM 2.25 GM VIAL IVPB ONE (18:02)
[2021-02-12] MEDS ORDERED: DEXTROSE 5%-WATER - 50 ML IVPB ONE (18:02)
[2021-02-12] MEDS: PANTOPRAZOLE SODIUM 40 MG VIAL IVPUSH SCH ×2 (18:08→21:46)
[2021-02-12] MEDS: CLINDAMYCIN 600MG PREMIX IVPB 600 MG/50 ML BAG IVPB SCH ×2 (18:08→18:19)
[2021-02-12] MEDS: PIPERACILLIN/TAZOB 2.25 GM 2.25 GM in DEXTROSE 5%-WATER - 50 ML IVPB SCH (18:09)
[2021-02-12] MEDS: INSULIN SLIDING SCALE (NOVOLOG) 1 VIAL SQ SCH ×2 (18:16→22:45)
[2021-02-12] MEDS: VANCOMYCIN 1 GM in D5W (PRE-DOCKED) 1,000 MG/250 ML IVPB ONE ×2 (18:29→18:32)
[2021-02-12] MEDS: MUPIROCIN 2% TOPICAL OINTMENT FOR DECOLONIZATION NS SCH (21:45)
[2021-02-12 21:46] LABS: ALBUMIN 1.9 g/dl (3.4-5.0); CALCIUM 9.1 mg/dL (8.5-10.1)
[2021-02-12 21:48] LABS: CREATININE 5.1 mg/dL (0.55-1.3)
[2021-02-12 21:49] LABS: BILIRUBIN,TOTAL 0.8 mg/dL (0.2-1); TOT PROT 5.4 g/dl (6.4-8.2)
[2021-02-12 21:56] LABS: BLOOD UREA NITROGEN 52.6 mg/dL (7-18)
[2021-02-12] MEDS ORDERED: ATORVASTATIN CA 20 MG TABLET (FP) PO SCH (22:00)
[2021-02-12] MEDS ORDERED: CHLORHEXIDINE GLUCONATE 4% CLEANSER FOR DECOLONIZATION TP SCH (22:00)
[2021-02-13] MEDS: METOPROLOL TARTRATE 5 MG/5 ML VIAL IVPUSH PRN ×2 (00:02→13:30)
[2021-02-13] MEDS ORDERED: SODIUM CHLORIDE 0.9% 500 ML INFUS.BAG IV ONE (00:32)
[2021-02-13] MEDS ORDERED: PIPERACILLIN/TAZOBACTAM 2.25 GM VIAL IVPB ONE ×2 (00:59→09:19)
[2021-02-13] MEDS ORDERED: DEXTROSE 5%-WATER - 50 ML IVPB ONE ×2 (01:00→09:19)
[2021-02-13] MEDS: CLINDAMYCIN 600MG PREMIX IVPB 600 MG/50 ML BAG IVPB SCH ×3 (01:00→18:53)
[2021-02-13] MEDS: PIPERACILLIN/TAZOB 2.25 GM 2.25 GM in DEXTROSE 5%-WATER - 50 ML IVPB SCH ×2 (01:01→09:39)
[2021-02-13] MEDS ORDERED: METOPROLOL TARTRATE 5 MG/5 ML VIAL IVPUSH ONE (02:56)
[2021-02-13] MEDS: INSULIN SLIDING SCALE (NOVOLOG) 1 VIAL SQ SCH ×4 (06:53→23:09)
[2021-02-13 08:30] LABS: BASO % 0.3 % (0-2.0); EOS % 0.1 % (0-4.5); HEMATOCRIT 27.2 % (35.4-49); HEMOGLOBIN 8.6 GM/dL (11.7-16.9); LYMPH % 1.5 % (8-40); MCH 31.6 pg (25.7-33.7); MCHC 31.8 g/dl (32.0-35.9); MEAN CELL VOLUME 99.2 fl (80-96); MEAN PLT VOLUME 8.8 fl (7.5-11.1); MONO % 4.6 % (3.8-10.2); NEUT % 93.5 % (42.8-82.8); PLATELET COUNT 202 10^3/uL (134-434); RBC 2.74 M/mm3 (4.00-5.60); RDW 16.3 % (11.9-15.9)
[2021-02-13 08:35] LABS: INR 1.96 (0.83-1.09); PROTHROMBIN TIME (PATIENT) 23.3 SEC (9.7-13.0)
[2021-02-13 08:50] LABS: ALBUMIN 1.9 g/dl (3.4-5.0); BLOOD UREA NITROGEN 55.3 mg/dL (7-18); CALCIUM 8.8 mg/dL (8.5-10.1); MAGNESIUM 2.2 mg/dL (1.8-2.4)
[2021-02-13 08:53] LABS: CREATININE 5.5 mg/dL (0.55-1.3)
[2021-02-13 08:54] LABS: BILIRUBIN,TOTAL 0.9 mg/dL (0.2-1); PHOSPHOROUS 5.8 mg/dL (2.5-4.9); TOT PROT 5.4 g/dl (6.4-8.2)
[2021-02-13 09:16] LABS: ANISOCYTOSIS 0; HELMET CELLS 0; HOWELL-JOLLY BODIES 0; MACROCYTOSIS 0; OVALOCYTE 0; PLATELET ESTIMATE NORMAL; ROULEAU 0; SICKELED CELLS 0; TARGET CELLS 0; TEAR DROP CELLS 0; TOXIC GRANULATION 0
[2021-02-13] MEDS: PANTOPRAZOLE SODIUM 40 MG VIAL IVPUSH SCH ×2 (09:39→22:06)
[2021-02-13] MEDS: MUPIROCIN 2% TOPICAL OINTMENT FOR DECOLONIZATION NS SCH (09:40)
[2021-02-13] MEDS ORDERED: PANTOPRAZOLE SODIUM 40 MG VIAL IVPUSH SCH (10:00)
[2021-02-13] MEDS: APIXABAN 5 MG TABLET PO SCH ×2 (13:35→22:09)
[2021-02-13] MEDS ORDERED: SODIUM CHLORIDE 500 ML IV STA (14:13)
[2021-02-13] MEDS: oxyCODONE HCL 5 MG TABLET PO PRN (22:06)
[2021-02-13] MEDS: ATORVASTATIN CA 40 MG TABLET (FP) PO SCH (22:08)
[2021-02-13] MEDS: ACETAMINOPHEN 325 MG TABLET (FP) PO PRN (23:01)
[2021-02-14] MEDS ORDERED: PIPERACILLIN/TAZOBACTAM 2.25 GM VIAL IVPB ONE ×3 (00:36→17:14)
[2021-02-14] MEDS: PIPERACILLIN/TAZOB 2.25 GM 2.25 GM in DEXTROSE 5%-WATER - 50 ML IVPB SCH ×3 (01:11→17:26)
[2021-02-14] MEDS: CLINDAMYCIN 600MG PREMIX IVPB 600 MG/50 ML BAG IVPB SCH ×3 (01:12→17:25)
[2021-02-14] MEDS: ACETAMINOPHEN 325 MG TABLET (FP) PO PRN (04:57)
[2021-02-14] MEDS: oxyCODONE HCL 5 MG TABLET PO PRN ×2 (05:00→20:31)
[2021-02-14] MEDS: INSULIN SLIDING SCALE (NOVOLOG) 1 VIAL SQ SCH ×4 (07:08→22:31)
[2021-02-14] MEDS ORDERED: SODIUM CHLORIDE 250 ML IV PRN (07:35)
[2021-02-14] MEDS ORDERED: EPOETIN ALFA-EPBX 4,000 UNIT/ML VIAL SQ ONE (08:00)
[2021-02-14] MEDS ORDERED: DEXTROSE 5%-WATER - 50 ML IVPB ONE ×2 (09:30→17:14)
[2021-02-14] MEDS: APIXABAN 5 MG TABLET PO SCH ×2 (09:42→21:37)
[2021-02-14] MEDS: PANTOPRAZOLE SODIUM 40 MG VIAL IVPUSH SCH ×2 (09:42→21:37)
[2021-02-14] MEDS ORDERED: INSULIN (NOVOLOG) ASPART 100 UNITS/ML 10ML VIAL ONE (11:58)
[2021-02-14 14:31] LABS: ARTERIAL BLD GAS O2 SATURATION 98.5 % (95-98); ARTERIAL BLOOD GAS PO2 107.2 mmHg (80-100); ARTERIAL BLOOD GAS pH 7.574 (7.350-7.450)
[2021-02-14 14:37] LABS: ALLENS TEST POSITIVE
[2021-02-14 14:38] LABS: PT'S TEMP 98.6
[2021-02-14] MEDS ORDERED: POLYETHYLENE GLYCOL (HEALTHYLAX) 3350 17 GM PACKET PO PRN (18:48)
[2021-02-14 21:36] LABS: HEMATOCRIT 25.9 % (35.4-49); HEMOGLOBIN 8.2 GM/dL (11.7-16.9); MCH 31.4 pg (25.7-33.7); MCHC 31.8 g/dl (32.0-35.9); MEAN CELL VOLUME 98.6 fl (80-96); MEAN PLT VOLUME 9.3 fl (7.5-11.1); PLATELET COUNT 166 10^3/uL (134-434); RBC 2.63 M/mm3 (4.00-5.60); RDW 15.9 % (11.9-15.9); WHITE BLOOD COUNT 18.4 K/mm3 (4.0-10.0)
[2021-02-14] MEDS: ATORVASTATIN CA 40 MG TABLET (FP) PO SCH (21:37)
[2021-02-14] MEDS: METOPROLOL TARTRATE 5 MG/5 ML VIAL IVPUSH PRN (22:29)
[2021-02-15] MEDS ORDERED: PIPERACILLIN/TAZOBACTAM 2.25 GM VIAL IVPB ONE ×3 (01:07→17:22)
[2021-02-15] MEDS: ACETAMINOPHEN 325 MG TABLET (FP) PO PRN (01:33)
[2021-02-15] MEDS: PIPERACILLIN/TAZOB 2.25 GM 2.25 GM in DEXTROSE 5%-WATER - 50 ML IVPB SCH ×4 (01:34→17:50)
[2021-02-15] MEDS: CLINDAMYCIN 600MG PREMIX IVPB 600 MG/50 ML BAG IVPB SCH ×2 (01:35→10:04)
[2021-02-15] MEDS: oxyCODONE HCL 5 MG TABLET PO PRN ×2 (04:27→22:36)
[2021-02-15] MEDS: METOPROLOL TARTRATE 5 MG/5 ML VIAL IVPUSH PRN (06:53)
[2021-02-15] MEDS: INSULIN SLIDING SCALE (NOVOLOG) 1 VIAL SQ SCH ×4 (06:54→21:16)
[2021-02-15 08:17] LABS: BASO % 0.3 % (0-2.0); EOS % 0.1 % (0-4.5); HEMATOCRIT 24.5 % (35.4-49); HEMOGLOBIN 7.9 GM/dL (11.7-16.9); MCH 31.9 pg (25.7-33.7); MCHC 32.2 g/dl (32.0-35.9); MEAN CELL VOLUME 98.9 fl (80-96); MEAN PLT VOLUME 9.3 fl (7.5-11.1); MONO % 3.6 % (3.8-10.2); PLATELET COUNT 158 10^3/uL (134-434); RBC 2.48 M/mm3 (4.00-5.60); RDW 16.1 % (11.9-15.9); WHITE BLOOD COUNT 19.5 K/mm3 (4.0-10.0)
[2021-02-15] MEDS ORDERED: DEXTROSE 5%-WATER - 50 ML IVPB ONE ×2 (08:35→17:22)
[2021-02-15] MEDS: PANTOPRAZOLE SODIUM 40 MG VIAL IVPUSH SCH ×2 (10:05→21:11)
[2021-02-15] MEDS: APIXABAN 5 MG TABLET PO SCH ×2 (10:05→21:12)
[2021-02-15 11:02] LABS: ANISOCYTOSIS 0; HELMET CELLS 0; HOWELL-JOLLY BODIES 0; MACROCYTOSIS 0; OVALOCYTE 0; PLATELET ESTIMATE NORMAL; ROULEAU 0; SICKELED CELLS 0; TARGET CELLS 0; TEAR DROP CELLS 0; TOXIC GRANULATION 0
[2021-02-15] MEDS ORDERED: VANCOMYCIN 1 GRAM (PRE-DOCKED) 1,000 MG/250 ML BAG IVPB ONE (12:00)
[2021-02-15] MEDS ORDERED: INSULIN (NOVOLOG) ASPART 100 UNITS/ML 10ML VIAL ONE (12:29)
[2021-02-15] MEDS: ATORVASTATIN CA 40 MG TABLET (FP) PO SCH (21:12)
[2021-02-16] MEDS ORDERED: PIPERACILLIN/TAZOBACTAM 2.25 GM VIAL IVPB ONE ×3 (00:18→17:08)
[2021-02-16] MEDS ORDERED: DEXTROSE 5%-WATER - 50 ML IVPB ONE ×3 (00:18→17:09)
[2021-02-16] MEDS: PIPERACILLIN/TAZOB 2.25 GM 2.25 GM in DEXTROSE 5%-WATER - 50 ML IVPB SCH ×3 (02:22→17:20)
[2021-02-16] MEDS: INSULIN SLIDING SCALE (NOVOLOG) 1 VIAL SQ SCH ×4 (06:39→21:46)
[2021-02-16 08:01] LABS: BASO % 0.1 % (0-2.0); EOS % 0.4 % (0-4.5); HEMATOCRIT 25.6 % (35.4-49); HEMOGLOBIN 8.2 GM/dL (11.7-16.9); LYMPH % 2.3 % (8-40); MCH 31.7 pg (25.7-33.7); MCHC 32.2 g/dl (32.0-35.9); MEAN CELL VOLUME 98.6 fl (80-96); MEAN PLT VOLUME 9.5 fl (7.5-11.1); MONO % 2.9 % (3.8-10.2); NEUT % 94.3 % (42.8-82.8); PLATELET COUNT 170 10^3/uL (134-434); RDW 16.1 % (11.9-15.9); WHITE BLOOD COUNT 20.5 K/mm3 (4.0-10.0)
[2021-02-16] MEDS ORDERED: PT OWN MED DRAWER 7, Y5N ONE (10:16)
[2021-02-16 10:26] LABS: ANISOCYTOSIS 1+; MACROCYTOSIS 1+; PLATELET ESTIMATE NORMAL
[2021-02-16] MEDS: PANTOPRAZOLE SODIUM 40 MG VIAL IVPUSH SCH (10:39)
[2021-02-16] MEDS: POLYETHYLENE GLYCOL (HEALTHYLAX) 3350 17 GM PACKET PO SCH (21:44)
[2021-02-16] MEDS: ATORVASTATIN CA 40 MG TABLET (FP) PO SCH (21:44)
[2021-02-17] MEDS ORDERED: DEXTROSE 5%-WATER - 50 ML IVPB ONE ×3 (01:05→17:57)
[2021-02-17] MEDS ORDERED: PIPERACILLIN/TAZOBACTAM 2.25 GM VIAL IVPB ONE ×3 (01:05→17:57)
[2021-02-17] MEDS: oxyCODONE HCL 5 MG TABLET PO PRN ×3 (01:07→21:17)
[2021-02-17] MEDS: PIPERACILLIN/TAZOB 2.25 GM 2.25 GM in DEXTROSE 5%-WATER - 50 ML IVPB SCH ×3 (01:07→18:00)
[2021-02-17] MEDS: POLYETHYLENE GLYCOL (HEALTHYLAX) 3350 17 GM PACKET PO SCH ×4 (05:01→21:27)
[2021-02-17 05:07] LABS: ANTI-DNAse B <78 U/mL (0-120)
[2021-02-17] MEDS: ACETAMINOPHEN 325 MG TABLET (FP) PO PRN ×2 (05:12→21:18)
[2021-02-17] MEDS: INSULIN SLIDING SCALE (NOVOLOG) 1 VIAL SQ SCH ×4 (06:31→21:36)
[2021-02-17] MEDS: PANTOPRAZOLE SODIUM 40 MG VIAL IVPUSH SCH (10:14)
[2021-02-17] MEDS ORDERED: SODIUM CHLORIDE 250 ML IV PRN (10:31)
[2021-02-17] MEDS ORDERED: EPOETIN ALFA-EPBX 10,000 UNIT/ML VIAL IVPUSH ONE (10:31)
[2021-02-17] MEDS: LINEZOLID 600 MG PREMIX BAG 600 MG/300 ML BAG IVPB SCH ×2 (10:50→22:28)
[2021-02-17] MEDS ORDERED: INSULIN (NOVOLOG) ASPART 100 UNITS/ML 10ML VIAL ONE ×3 (11:47→21:05)
[2021-02-17] MEDS: MIDODRINE HCL 5 MG TABLET PO SCH (17:59)
[2021-02-17] MEDS: ATORVASTATIN CA 40 MG TABLET (FP) PO SCH (21:20)
[2021-02-18] MEDS ORDERED: DEXTROSE 5%-WATER - 50 ML IVPB ONE ×3 (01:07→18:34)
[2021-02-18] MEDS ORDERED: PIPERACILLIN/TAZOBACTAM 2.25 GM VIAL IVPB ONE ×3 (01:07→18:33)
[2021-02-18] MEDS: PIPERACILLIN/TAZOB 2.25 GM 2.25 GM in DEXTROSE 5%-WATER - 50 ML IVPB SCH ×3 (01:09→18:37)
[2021-02-18] MEDS: MORPHINE SULFATE 2 MG/ML VIAL IVPUSH PRN ×2 (02:08→14:45)
[2021-02-18] MEDS: POLYETHYLENE GLYCOL (HEALTHYLAX) 3350 17 GM PACKET PO SCH ×3 (06:21→21:08)
[2021-02-18] MEDS: INSULIN SLIDING SCALE (NOVOLOG) 1 VIAL SQ SCH ×4 (06:22→21:07)
[2021-02-18 07:58] LABS: BASO % 0.2 % (0-2.0); EOS % 0.6 % (0-4.5); HEMATOCRIT 24.1 % (35.4-49); LYMPH % 1.9 % (8-40); MCH 32.1 pg (25.7-33.7); MCHC 33.1 g/dl (32.0-35.9); MONO % 2.8 % (3.8-10.2); NEUT % 94.5 % (42.8-82.8); PLATELET COUNT 154 10^3/uL (134-434); RBC 2.49 M/mm3 (4.00-5.60); WHITE BLOOD COUNT 18.3 K/mm3 (4.0-10.0)
[2021-02-18 08:16] LABS: ALBUMIN 1.8 g/dl (3.4-5.0); BLOOD UREA NITROGEN 40.2 mg/dL (7-18)
[2021-02-18 08:21] LABS: BILIRUBIN,TOTAL 2.8 mg/dL (0.2-1); TOT PROT 5.5 g/dl (6.4-8.2)
[2021-02-18] MEDS: PANTOPRAZOLE SODIUM 40 MG VIAL IVPUSH SCH (10:02)
[2021-02-18] MEDS: MIDODRINE HCL 5 MG TABLET PO SCH ×2 (10:03→18:37)
[2021-02-18] MEDS: LINEZOLID 600 MG PREMIX BAG 600 MG/300 ML BAG IVPB SCH ×2 (10:05→21:37)
[2021-02-18 11:36] LABS: ANISOCYTOSIS 1+; MACROCYTOSIS 0; PLATELET ESTIMATE NORMAL
[2021-02-18] MEDS ORDERED: INSULIN (NOVOLOG) ASPART 100 UNITS/ML 10ML VIAL ONE ×2 (11:42→21:04)
[2021-02-18] MEDS ORDERED: INSULIN (NOVOLOG MIX 70/30) 100 UNITS/ML MDV SQ ONE (11:43)
[2021-02-18] MEDS ORDERED: SODIUM CHLORIDE 250 ML IV PRN (16:11)
[2021-02-18] MEDS: ATORVASTATIN CA 40 MG TABLET (FP) PO SCH (21:08)
[2021-02-18] MEDS: oxyCODONE HCL 5 MG TABLET PO PRN (21:11)
[2021-02-19] MEDS ORDERED: DEXTROSE 5%-WATER - 50 ML IVPB ONE ×3 (00:31→17:24)
[2021-02-19] MEDS ORDERED: PIPERACILLIN/TAZOBACTAM 2.25 GM VIAL IVPB ONE ×3 (00:31→17:23)
[2021-02-19] MEDS: PIPERACILLIN/TAZOB 2.25 GM 2.25 GM in DEXTROSE 5%-WATER - 50 ML IVPB SCH ×3 (01:03→17:29)
[2021-02-19] MEDS: INSULIN SLIDING SCALE (NOVOLOG) 1 VIAL SQ SCH ×4 (06:06→21:27)
[2021-02-19] MEDS: POLYETHYLENE GLYCOL (HEALTHYLAX) 3350 17 GM PACKET PO SCH ×2 (06:06→14:24)
[2021-02-19] MEDS: MIDODRINE HCL 5 MG TABLET PO SCH ×4 (06:52→17:54)
[2021-02-19] MEDS ORDERED: EPOETIN ALFA-EPBX 10,000 UNIT/ML VIAL SQ ONE (07:30)
[2021-02-19] MEDS: ALBUMIN HUMAN 25% 12.5 GM/50 ML VIAL IVPB SCH ×4 (07:30→09:00)
[2021-02-19 09:09] LABS: BASO % 0.1 % (0-2.0); EOS % 0.6 % (0-4.5); HEMATOCRIT 24.4 % (35.4-49); HEMOGLOBIN 7.9 GM/dL (11.7-16.9); LYMPH % 2.3 % (8-40); MCH 31.2 pg (25.7-33.7); MCHC 32.4 g/dl (32.0-35.9); MEAN CELL VOLUME 96.1 fl (80-96); MEAN PLT VOLUME 9.5 fl (7.5-11.1); MONO % 3.1 % (3.8-10.2); NEUT % 93.9 % (42.8-82.8); PLATELET COUNT 190 10^3/uL (134-434); RBC 2.54 M/mm3 (4.00-5.60); RDW 16.4 % (11.9-15.9); WHITE BLOOD COUNT 20.3 K/mm3 (4.0-10.0)
[2021-02-19] MEDS: PANTOPRAZOLE SODIUM 40 MG VIAL IVPUSH SCH (09:19)
[2021-02-19 09:21] LABS: BLOOD UREA NITROGEN 53.3 mg/dL (7-18); CALCIUM 7.8 mg/dL (8.5-10.1)
[2021-02-19 09:25] LABS: CREATININE 5.1 mg/dL (0.55-1.3)
[2021-02-19] MEDS: MORPHINE SULFATE 2 MG/ML VIAL IVPUSH PRN (09:33)
[2021-02-19] MEDS: LINEZOLID 600 MG PREMIX BAG 600 MG/300 ML BAG IVPB SCH ×2 (09:33→21:32)
[2021-02-19 12:22] LABS: ANISOCYTOSIS 1+; MACROCYTOSIS 0; OVALOCYTE 1+; PLATELET ESTIMATE DECREASED; TEAR DROP CELLS 0
[2021-02-19] MEDS: ATORVASTATIN CA 40 MG TABLET (FP) PO SCH (21:31)
[2021-02-19] MEDS: oxyCODONE HCL 5 MG TABLET PO PRN (23:24)
[2021-02-20] MEDS ORDERED: PIPERACILLIN/TAZOBACTAM 2.25 GM VIAL IVPB ONE ×3 (01:00→17:20)
[2021-02-20] MEDS ORDERED: DEXTROSE 5%-WATER - 50 ML IVPB ONE ×2 (01:01→10:16)
[2021-02-20] MEDS: PIPERACILLIN/TAZOB 2.25 GM 2.25 GM in DEXTROSE 5%-WATER - 50 ML IVPB SCH ×3 (01:14→17:27)
[2021-02-20] MEDS: MORPHINE SULFATE 2 MG/ML VIAL IVPUSH PRN ×2 (01:43→22:09)
[2021-02-20] MEDS: INSULIN SLIDING SCALE (NOVOLOG) 1 VIAL SQ SCH ×4 (06:17→21:45)
[2021-02-20] MEDS ORDERED: LOSARTAN POTASSIUM 50 MG TABLET PO SCH (10:00)
[2021-02-20] MEDS: PANTOPRAZOLE SODIUM 40 MG VIAL IVPUSH SCH (10:16)
[2021-02-20] MEDS ORDERED: PT OWN MED DRAWER 7, Y5N ONE ×2 (10:31→18:47)
[2021-02-20] MEDS: VALSARTAN 40 MG TABLET PO SCH (10:39)
[2021-02-20] MEDS: MIDODRINE HCL 5 MG TABLET PO SCH ×2 (10:39→17:28)
[2021-02-20] MEDS: CARVEDILOL 12.5 MG TABLET (FP) PO SCH ×2 (10:39→21:40)
[2021-02-20] MEDS: LINEZOLID 600 MG PREMIX BAG 600 MG/300 ML BAG IVPB SCH ×2 (11:19→21:45)
[2021-02-20] MEDS: oxyCODONE HCL 5 MG TABLET PO PRN (17:28)
[2021-02-20] MEDS: SILVER SULFADIAZINE 1% TOP CREAM 400 GM JAR TP SCH (22:10)
[2021-02-21] MEDS ORDERED: DEXTROSE 5%-WATER - 50 ML IVPB ONE ×3 (00:57→17:35)
[2021-02-21] MEDS ORDERED: PIPERACILLIN/TAZOBACTAM 2.25 GM VIAL IVPB ONE ×3 (00:57→17:35)
[2021-02-21] MEDS: PIPERACILLIN/TAZOB 2.25 GM 2.25 GM in DEXTROSE 5%-WATER - 50 ML IVPB SCH ×3 (01:46→18:28)
[2021-02-21] MEDS: MORPHINE SULFATE 2 MG/ML VIAL IVPUSH PRN ×2 (05:08→16:28)
[2021-02-21] MEDS: INSULIN SLIDING SCALE (NOVOLOG) 1 VIAL SQ SCH ×4 (06:41→21:38)
[2021-02-21] MEDS: MIDODRINE HCL 5 MG TABLET PO SCH ×2 (10:15→18:28)
[2021-02-21] MEDS: VALSARTAN 40 MG TABLET PO SCH (10:15)
[2021-02-21] MEDS: CARVEDILOL 12.5 MG TABLET (FP) PO SCH ×2 (10:15→21:37)
[2021-02-21] MEDS: PANTOPRAZOLE SODIUM 40 MG VIAL IVPUSH SCH (10:16)
[2021-02-21] MEDS: LINEZOLID 600 MG PREMIX BAG 600 MG/300 ML BAG IVPB SCH ×2 (10:26→21:32)
[2021-02-21] MEDS: SILVER SULFADIAZINE 1% TOP CREAM 400 GM JAR TP SCH ×2 (10:27→21:40)
[2021-02-21] MEDS ORDERED: SODIUM CHLORIDE 250 ML IV PRN (13:13)
[2021-02-21] MEDS ORDERED: EPOETIN ALFA-EPBX 10,000 UNIT/ML VIAL SQ ONE (14:00)
[2021-02-21 16:19] LABS: BASO % 0.3 % (0-2.0); EOS % 0.4 % (0-4.5); HEMOGLOBIN 7.9 GM/dL (11.7-16.9); LYMPH % 1.5 % (8-40); MCH 31.7 pg (25.7-33.7); MCHC 33.1 g/dl (32.0-35.9); MEAN CELL VOLUME 95.7 fl (80-96); MEAN PLT VOLUME 9.5 fl (7.5-11.1); MONO % 1.9 % (3.8-10.2); NEUT % 95.9 % (42.8-82.8); PLATELET COUNT 186 10^3/uL (134-434); RBC 2.51 M/mm3 (4.00-5.60); RDW 15.7 % (11.9-15.9)
[2021-02-21 16:53] LABS: ANISOCYTOSIS 1+; MACROCYTOSIS 0; PLATELET ESTIMATE NORMAL
[2021-02-22] MEDS ORDERED: PIPERACILLIN/TAZOBACTAM 2.25 GM VIAL IVPB ONE ×3 (00:44→16:50)
[2021-02-22] MEDS ORDERED: DEXTROSE 5%-WATER - 50 ML IVPB ONE ×3 (00:44→16:50)
[2021-02-22] MEDS: PIPERACILLIN/TAZOB 2.25 GM 2.25 GM in DEXTROSE 5%-WATER - 50 ML IVPB SCH ×3 (01:41→17:00)
[2021-02-22] MEDS: INSULIN SLIDING SCALE (NOVOLOG) 1 VIAL SQ SCH ×4 (06:01→21:51)
[2021-02-22] MEDS: LINEZOLID 600 MG PREMIX BAG 600 MG/300 ML BAG IVPB SCH ×2 (09:56→21:51)
[2021-02-22] MEDS: PANTOPRAZOLE SODIUM 40 MG VIAL IVPUSH SCH (09:56)
[2021-02-22] MEDS: MIDODRINE HCL 5 MG TABLET PO SCH ×2 (09:57→17:00)
[2021-02-22] MEDS: SILVER SULFADIAZINE 1% TOP CREAM 400 GM JAR TP SCH ×2 (09:57→21:51)
[2021-02-22] MEDS: VALSARTAN 40 MG TABLET PO SCH (09:57)
[2021-02-22] MEDS: CARVEDILOL 12.5 MG TABLET (FP) PO SCH ×2 (09:57→21:50)
[2021-02-22] MEDS: MORPHINE SULFATE 2 MG/ML VIAL IVPUSH PRN ×2 (12:32→22:25)
[2021-02-23] MEDS ORDERED: PIPERACILLIN/TAZOBACTAM 2.25 GM VIAL IVPB ONE ×3 (01:48→17:04)
[2021-02-23] MEDS ORDERED: DEXTROSE 5%-WATER - 50 ML IVPB ONE ×3 (01:48→17:05)
[2021-02-23] MEDS: PIPERACILLIN/TAZOB 2.25 GM 2.25 GM in DEXTROSE 5%-WATER - 50 ML IVPB SCH ×3 (02:33→17:19)
[2021-02-23] MEDS: MORPHINE SULFATE 2 MG/ML VIAL IVPUSH PRN ×3 (04:25→21:45)
[2021-02-23] MEDS: INSULIN SLIDING SCALE (NOVOLOG) 1 VIAL SQ SCH ×4 (06:34→21:53)
[2021-02-23] MEDS: oxyCODONE HCL 5 MG TABLET PO PRN (07:00)
[2021-02-23] MEDS: VALSARTAN 40 MG TABLET PO SCH (10:49)
[2021-02-23] MEDS: PANTOPRAZOLE SODIUM 40 MG VIAL IVPUSH SCH (10:49)
[2021-02-23] MEDS: AMINO ACIDS/PROTEIN HYDROLYS 30 ML LIQUID.PKT PO SCH (10:49)
[2021-02-23] MEDS: CARVEDILOL 12.5 MG TABLET (FP) PO SCH ×2 (10:49→21:49)
[2021-02-23] MEDS: VITAMIN B COMP W-C 1 EA TABLET (NEPHRO-VITE) PO SCH (10:49)
[2021-02-23] MEDS: MIDODRINE HCL 5 MG TABLET PO SCH ×2 (10:50→17:19)
[2021-02-23] MEDS: LINEZOLID 600 MG PREMIX BAG 600 MG/300 ML BAG IVPB SCH ×2 (10:51→21:47)
[2021-02-23] MEDS: SILVER SULFADIAZINE 1% TOP CREAM 400 GM JAR TP SCH ×3 (11:05→21:50)
[2021-02-23] MEDS ORDERED: INSULIN (NOVOLOG) ASPART 100 UNITS/ML 10ML VIAL ONE (14:34)
[2021-02-24] MEDS ORDERED: PIPERACILLIN/TAZOBACTAM 2.25 GM VIAL IVPB ONE ×3 (01:00→17:09)
[2021-02-24] MEDS ORDERED: DEXTROSE 5%-WATER - 50 ML IVPB ONE ×3 (01:00→17:09)
[2021-02-24] MEDS: PIPERACILLIN/TAZOB 2.25 GM 2.25 GM in DEXTROSE 5%-WATER - 50 ML IVPB SCH ×3 (01:06→17:13)
[2021-02-24] MEDS: MORPHINE SULFATE 2 MG/ML VIAL IVPUSH PRN (04:02)
[2021-02-24] MEDS: INSULIN SLIDING SCALE (NOVOLOG) 1 VIAL SQ SCH ×4 (06:16→21:28)
[2021-02-24] MEDS: AMINO ACIDS/PROTEIN HYDROLYS 30 ML LIQUID.PKT PO SCH (07:50)
[2021-02-24 07:58] LABS: BASO % 0.9 % (0-2.0); EOS % 0.9 % (0-4.5); HEMATOCRIT 28.1 % (35.4-49); HEMOGLOBIN 9.4 GM/dL (11.7-16.9); MCH 31.8 pg (25.7-33.7); MCHC 33.6 g/dl (32.0-35.9); MEAN CELL VOLUME 94.8 fl (80-96); MEAN PLT VOLUME 8.9 fl (7.5-11.1); MONO % 2.5 % (3.8-10.2); NEUT % 92.7 % (42.8-82.8); PLATELET COUNT 159 10^3/uL (134-434); RBC 2.96 M/mm3 (4.00-5.60); RDW 15.9 % (11.9-15.9); WHITE BLOOD COUNT 14.1 K/mm3 (4.0-10.0)
[2021-02-24] MEDS ORDERED: SODIUM CHLORIDE 250 ML IV PRN ×2 (10:09→19:02)
[2021-02-24] MEDS: VITAMIN B COMP W-C 1 EA TABLET (NEPHRO-VITE) PO SCH (10:23)
[2021-02-24] MEDS: PANTOPRAZOLE SODIUM 40 MG VIAL IVPUSH SCH (10:23)
[2021-02-24] MEDS: CARVEDILOL 12.5 MG TABLET (FP) PO SCH ×3 (10:24→22:05)
[2021-02-24] MEDS: VALSARTAN 40 MG TABLET PO SCH (10:24)
[2021-02-24] MEDS: MIDODRINE HCL 5 MG TABLET PO SCH ×2 (10:25→17:24)
[2021-02-24] MEDS: SILVER SULFADIAZINE 1% TOP CREAM 400 GM JAR TP SCH ×2 (10:26→21:35)
[2021-02-24] MEDS: LINEZOLID 600 MG PREMIX BAG 600 MG/300 ML BAG IVPB SCH ×2 (10:26→21:35)
[2021-02-24 10:33] LABS: HEMATOCRIT 27.6 % (35.4-49); HEMOGLOBIN 9.4 GM/dL (11.7-16.9); MCH 32.3 pg (25.7-33.7); MCHC 33.9 g/dl (32.0-35.9); MEAN CELL VOLUME 95.2 fl (80-96); MEAN PLT VOLUME 9.4 fl (7.5-11.1); PLATELET COUNT 167 10^3/uL (134-434); RDW 15.6 % (11.9-15.9); WHITE BLOOD COUNT 14.2 K/mm3 (4.0-10.0)
[2021-02-24 10:53] LABS: BLOOD UREA NITROGEN 58.7 mg/dL (7-18); CALCIUM 7.7 mg/dL (8.5-10.1)
[2021-02-24 10:54] LABS: ANISOCYTOSIS 2+; MACROCYTOSIS 1+; OVALOCYTE 1+; PLATELET ESTIMATE NORMAL; TEAR DROP CELLS 1+; TOXIC GRANULATION 1+
[2021-02-24 10:54] LABS: MAGNESIUM 1.9 mg/dL (1.8-2.4)
[2021-02-24 10:56] LABS: CREATININE 5.8 mg/dL (0.55-1.3)
[2021-02-24 10:57] LABS: PHOSPHOROUS 5.6 mg/dL (2.5-4.9)
[2021-02-24 10:58] LABS: BILIRUBIN,TOTAL 3.3 mg/dL (0.2-1); TOT PROT 5.2 g/dl (6.4-8.2)
[2021-02-24] MEDS ORDERED: LIDOCAINE HCL 2% (20ML MULTI-DOSE VIAL) ONE (11:13)
[2021-02-24] MEDS ORDERED: ELECTROLYTE-148 SOLN 1,000 ML IV SCH (11:15)
[2021-02-24 11:19] LABS: ALBUMIN 1.2 g/dl (3.4-5.0)
[2021-02-24] MEDS ORDERED: PROPOFOL 20 ML ONE (11:36)
[2021-02-24] MEDS ORDERED: ROCURONIUM BROMIDE 50 MG/5 ML SYRINGE ONE (11:42)
[2021-02-24] MEDS ORDERED: DEXAMETHASONE SOD PHOSPHATE 4 MG/1 ML VIAL ONE (12:08)
[2021-02-24] MEDS ORDERED: GLYCOPYRROLATE 0.2 MG/1 ML VIAL ONE ×2 (12:19→12:36)
[2021-02-24] MEDS ORDERED: NEOSTIGMINE METHYLSULFATE 0.5 MG/ML - 10 ML MDV ONE (12:36)
[2021-02-24] MEDS ORDERED: ePHEDrine SULFATE 50 MG/1 ML AMPULE ONE (12:45)
[2021-02-24] MEDS ORDERED: VASOPRESSIN 20 UNITS/ML VIAL IV ONE (12:51)
[2021-02-24] MEDS ORDERED: ONDANSETRON 4 MG/2 ML VIAL IVPUSH PRN ×2 (13:42→19:02)
[2021-02-24 14:54] LABS: ARTERIAL BLD GAS O2 SATURATION 54.5 % (95-98); ARTERIAL BLOOD GAS BASE EXCESS -2.4 mmol/L (-2-2)
[2021-02-24 14:59] LABS: ALLENS TEST POSITIVE
[2021-02-24 15:00] LABS: VENT MODE S/T; VENT RATE 14
[2021-02-24 15:08] LABS: ARTERIAL BLOOD GAS PO2 34.5 mmHg (80-100)
[2021-02-24] MEDS ORDERED: METOPROLOL TARTRATE 5 MG/5 ML VIAL IVPUSH ONE (16:05)
[2021-02-24] MEDS ORDERED: SODIUM CHLORIDE 500 ML IV STA ×2 (16:10→19:02)
[2021-02-24] MEDS ORDERED: dilTIAZem HCL 50 MG/10 ML - 10 ML VIAL IVPUSH ONE (16:34)
[2021-02-24] MEDS ORDERED: EPOETIN ALFA-EPBX 4,000 UNIT/ML VIAL SQ ONE ×2 (17:30→19:02)
[2021-02-24] MEDS ORDERED: EPOETIN ALFA-EPBX 4,000 UNIT/ML VIAL IVPUSH ONE (17:30)
[2021-02-24] MEDS ORDERED: ALBUMIN HUMAN 25% 12.5 GM/50 ML VIAL IVPB ONE (17:55)
[2021-02-24] MEDS ORDERED: ALBUMIN HUMAN 25% 12.5 GM/50 ML VIAL IVPB SCH (18:40)
[2021-02-24] MEDS: ALBUMIN HUMAN 25% 12.5 GM/50 ML VIAL IVPB SCH ×3 (18:40→19:40)
[2021-02-24] MEDS ORDERED: ACETAMINOPHEN 325 MG TABLET (FP) PO PRN (19:02)
[2021-02-24] MEDS ORDERED: METOPROLOL TARTRATE 5 MG/5 ML VIAL IVPUSH PRN (19:02)
[2021-02-24] MEDS ORDERED: AMIODARONE IN DEXTROSE,ISO-OSM 150 MG/100 ML BAG IVPB ONE (19:25)
[2021-02-24] MEDS ORDERED: AMIODARONE IN DEXTROSE,ISO-OSM 360 MG/200 ML BAG IVPB ONE (19:35)
[2021-02-24] MEDS: ALBUTEROL SO4 2.5/IPRATROPIUM 0.5 INH SOL 3 ML VIAL.NEB. NEB SCH ×2 (20:53→22:06)
[2021-02-24] MEDS: CHLORHEXIDINE GLUCONATE 4% CLEANSER FOR DECOLONIZATION TP SCH (21:27)
[2021-02-24] MEDS: MUPIROCIN 2% TOPICAL OINTMENT FOR DECOLONIZATION NS SCH (21:27)
[2021-02-24] MEDS: ELECTROLYTE-148 SOLN 1,000 ML IV SCH (21:33)
[2021-02-24] MEDS: methylPREDNISolone NA SUCC 40 MG/1 ML VIAL IVPUSH SCH (21:34)
[2021-02-24] MEDS: HEPARIN NA (PORCINE) 5,000 UNITS/ML 1ML VIAL SQ SCH (21:34)
[2021-02-24] MEDS ORDERED: MUPIROCIN 2% TOPICAL OINTMENT FOR DECOLONIZATION NS SCH (22:00)
[2021-02-24] MEDS ORDERED: CHLORHEXIDINE GLUCONATE 4% CLEANSER FOR DECOLONIZATION TP SCH (22:00)
[2021-02-24] MEDS ORDERED: HEPARIN NA (PORCINE) 5,000 UNITS/ML 1ML VIAL SQ SCH (22:00)
[2021-02-24] MEDS ORDERED: ACETAMINOPHEN 1000 MG/100 ML VIAL (NON FORMULARY) IVPB ONE (22:23)
[2021-02-25] MEDS ORDERED: PIPERACILLIN/TAZOBACTAM 2.25 GM VIAL IVPB ONE ×3 (00:51→17:31)
[2021-02-25] MEDS ORDERED: DEXTROSE 5%-WATER - 50 ML IVPB ONE ×3 (00:51→17:31)
[2021-02-25] MEDS: methylPREDNISolone NA SUCC 40 MG/1 ML VIAL IVPUSH SCH ×4 (01:04→18:15)
[2021-02-25] MEDS: PIPERACILLIN/TAZOB 2.25 GM 2.25 GM in DEXTROSE 5%-WATER - 50 ML IVPB SCH ×3 (01:04→17:31)
[2021-02-25] MEDS ORDERED: AMIODARONE IN DEXTROSE,ISO-OSM 360 MG/200 ML BAG IVPB ONE (01:35)
[2021-02-25] MEDS: AMIODARONE IN DEXTROSE,ISO-OSM 360 MG/200 ML BAG IVPB ONE ×3 (03:05→03:26)
[2021-02-25] MEDS ORDERED: AMIODARONE HCL INJECTION 450 MG in DEXTROSE 5%-WATER - 241 ML IVPB ONE (03:10)
[2021-02-25] MEDS ORDERED: AMIODARONE IN DEXTROSE,ISO-OSM 360 MG/200 ML BAG IVPB SCH (03:25)
[2021-02-25] MEDS ORDERED: SODIUM CHLORIDE 500 ML IV STA (03:41)
[2021-02-25] MEDS: VASOPRESSIN 40 UNITS in SODIUM CHLORIDE 98 ML IVPB SCH ×3 (04:18→19:31)
[2021-02-25] MEDS: HEPARIN NA (PORCINE) 5,000 UNITS/ML 1ML VIAL SQ SCH ×3 (06:45→21:44)
[2021-02-25] MEDS: INSULIN SLIDING SCALE (NOVOLOG) 1 VIAL SQ SCH ×4 (06:46→21:44)
[2021-02-25 07:56] LABS: BILIRUBIN,DIRECT 2.4 mg/dL (0.0-0.2)
[2021-02-25] MEDS: ALBUTEROL SO4 2.5/IPRATROPIUM 0.5 INH SOL 3 ML VIAL.NEB. NEB SCH ×3 (08:00→19:52)
[2021-02-25] MEDS: AMINO ACIDS/PROTEIN HYDROLYS 30 ML LIQUID.PKT PO SCH (08:47)
[2021-02-25 09:26] LABS: BLOOD UREA NITROGEN 36.6 mg/dL (7-18); CALCIUM 8.3 mg/dL (8.5-10.1)
[2021-02-25 09:29] LABS: CREATININE 3.8 mg/dL (0.55-1.3); PHOSPHOROUS 5.9 mg/dL (2.5-4.9)
[2021-02-25] MEDS: PANTOPRAZOLE SODIUM 40 MG VIAL IVPUSH SCH (09:30)
[2021-02-25 09:31] LABS: TOT PROT 5.7 g/dl (6.4-8.2)
[2021-02-25] MEDS: MIDODRINE HCL 5 MG TABLET PO SCH ×2 (09:31→17:32)
[2021-02-25] MEDS: CARVEDILOL 12.5 MG TABLET (FP) PO SCH (09:32)
[2021-02-25] MEDS: VITAMIN B COMP W-C 1 EA TABLET (NEPHRO-VITE) PO SCH (10:10)
[2021-02-25] MEDS: LINEZOLID 600 MG PREMIX BAG 600 MG/300 ML BAG IVPB SCH ×2 (11:07→21:45)
[2021-02-25] MEDS: MUPIROCIN 2% TOPICAL OINTMENT FOR DECOLONIZATION NS SCH ×2 (11:08→21:44)
[2021-02-25] MEDS ORDERED: INSULIN (NOVOLOG) ASPART 100 UNITS/ML 10ML VIAL ONE ×2 (12:20→18:17)
[2021-02-25] MEDS ORDERED: MORPHINE SULFATE 2 MG/ML VIAL IVPUSH PRN (12:58)
[2021-02-25] MEDS ORDERED: VASOPRESSIN 20 UNITS/ML VIAL IV ONE ×2 (13:38→19:27)
[2021-02-25 14:24] VITALS: BMI 35.2
[2021-02-25] MEDS: SILVER SULFADIAZINE 1% TOP CREAM 400 GM JAR TP SCH ×2 (15:00→21:44)
[2021-02-25] MEDS: METOPROLOL TARTRATE 25 MG TABLET (FP) PO SCH ×2 (15:15→21:43)
[2021-02-25] MEDS ORDERED: MORPHINE SULFATE 2 MG/ML VIAL IVPUSH ONE (15:43)
[2021-02-25] MEDS ORDERED: morphine CARPU-JECT 4 MG/1 ML DISP.SYRIN IVPUSH ONE (16:03)
[2021-02-25] MEDS: ELECTROLYTE-148 SOLN 1,000 ML IV SCH (19:31)
[2021-02-25] MEDS: CHLORHEXIDINE GLUCONATE 4% CLEANSER FOR DECOLONIZATION TP SCH (21:43)
[2021-02-25] MEDS: MORPHINE SULFATE 2 MG/ML VIAL IVPUSH PRN (21:58)
[2021-02-26] MEDS ORDERED: PIPERACILLIN/TAZOBACTAM 2.25 GM VIAL IVPB ONE ×3 (00:44→17:12)
[2021-02-26] MEDS ORDERED: DEXTROSE 5%-WATER - 50 ML IVPB ONE ×3 (00:44→17:12)
[2021-02-26] MEDS: PIPERACILLIN/TAZOB 2.25 GM 2.25 GM in DEXTROSE 5%-WATER - 50 ML IVPB SCH ×3 (01:06→17:13)
[2021-02-26] MEDS: methylPREDNISolone NA SUCC 40 MG/1 ML VIAL IVPUSH SCH ×2 (01:06→06:45)
[2021-02-26] MEDS: VASOPRESSIN 40 UNITS in SODIUM CHLORIDE 98 ML IVPB SCH ×2 (05:55→18:00)
[2021-02-26] MEDS: HEPARIN NA (PORCINE) 5,000 UNITS/ML 1ML VIAL SQ SCH (05:56)
[2021-02-26] MEDS: MORPHINE SULFATE 2 MG/ML VIAL IVPUSH PRN ×2 (06:44→20:20)
[2021-02-26] MEDS: INSULIN SLIDING SCALE (NOVOLOG) 1 VIAL SQ SCH ×3 (06:45→17:00)
[2021-02-26 07:16] LABS: BASO % 0.7 % (0-2.0); EOS % 0.1 % (0-4.5); HEMATOCRIT 22.6 % (35.4-49); HEMOGLOBIN 7.7 GM/dL (11.7-16.9); LYMPH % 8.9 % (8-40); MCH 32.8 pg (25.7-33.7); MEAN CELL VOLUME 96.5 fl (80-96); MEAN PLT VOLUME 9.7 fl (7.5-11.1); MONO % 1.6 % (3.8-10.2); NEUT % 88.7 % (42.8-82.8); PLATELET COUNT 123 10^3/uL (134-434); RBC 2.34 M/mm3 (4.00-5.60); RDW 16.1 % (11.9-15.9); WHITE BLOOD COUNT 6.3 K/mm3 (4.0-10.0)
[2021-02-26 07:38] LABS: CALCIUM 7.5 mg/dL (8.5-10.1)
[2021-02-26 07:39] LABS: ALBUMIN 1.7 g/dl (3.4-5.0); BLOOD UREA NITROGEN 55.3 mg/dL (7-18); MAGNESIUM 1.9 mg/dL (1.8-2.4)
[2021-02-26 07:42] LABS: BILIRUBIN,TOTAL 2.4 mg/dL (0.2-1); CREATININE 4.7 mg/dL (0.55-1.3)
[2021-02-26 07:43] LABS: TOT PROT 5.6 g/dl (6.4-8.2)
[2021-02-26] MEDS ORDERED: EPOETIN ALFA-EPBX 4,000 UNIT/ML VIAL SQ ONE (09:09)
[2021-02-26] MEDS: AMINO ACIDS/PROTEIN HYDROLYS 30 ML LIQUID.PKT PO SCH (09:40)
[2021-02-26] MEDS: VITAMIN B COMP W-C 1 EA TABLET (NEPHRO-VITE) PO SCH (09:40)
[2021-02-26] MEDS: MIDODRINE HCL 5 MG TABLET PO SCH ×3 (09:40→19:11)
[2021-02-26] MEDS: METOPROLOL TARTRATE 25 MG TABLET (FP) PO SCH (09:40)
[2021-02-26] MEDS: PANTOPRAZOLE SODIUM 40 MG VIAL IVPUSH SCH (09:42)
[2021-02-26] MEDS: MUPIROCIN 2% TOPICAL OINTMENT FOR DECOLONIZATION NS SCH (09:49)
[2021-02-26] MEDS: SILVER SULFADIAZINE 1% TOP CREAM 400 GM JAR TP SCH (09:49)
[2021-02-26] MEDS ORDERED: SODIUM CHLORIDE 250 ML IV PRN (10:00)
[2021-02-26] MEDS ORDERED: EPOETIN ALFA-EPBX 10,000 UNIT/ML VIAL IVPUSH ONE (10:00)
[2021-02-26] MEDS: LINEZOLID 600 MG PREMIX BAG 600 MG/300 ML BAG IVPB SCH (11:30)
[2021-02-26] MEDS: ALBUTEROL SO4 2.5/IPRATROPIUM 0.5 INH SOL 3 ML VIAL.NEB. NEB SCH ×4 (12:35→20:04)
[2021-02-26] MEDS ORDERED: SODIUM HYPOCHLORITE 0.25%- 473 ML BULK BOTTLE TP SCH (13:45)
[2021-02-26 15:02] LABS: HEMATOCRIT 21.9 % (35.4-49); HEMOGLOBIN 7.4 GM/dL (11.7-16.9); MCH 32.7 pg (25.7-33.7); MCHC 33.9 g/dl (32.0-35.9); MEAN CELL VOLUME 96.6 fl (80-96); MEAN PLT VOLUME 9.3 fl (7.5-11.1); PLATELET COUNT 112 10^3/uL (134-434); RBC 2.27 M/mm3 (4.00-5.60); RDW 15.8 % (11.9-15.9); WHITE BLOOD COUNT 2.8 K/mm3 (4.0-10.0)
[2021-02-26] MEDS ORDERED: PT OWN MED DRAWER 7, Y5N ONE (15:11)
[2021-02-26 15:30] VITALS: TEMP 97.8
[2021-02-26] MEDS ORDERED: VASOPRESSIN 20 UNITS/ML VIAL IV ONE (17:33)
[2021-02-26 18:19] VITALS: BP 78/42; PULSE 129
[2021-02-26] MEDS: ELECTROLYTE-148 SOLN 1,000 ML IV SCH (19:13)
== END 2021-02-26 23:50 | disposition expired | DRG 720 ==
LOC: JER 06:10 → JERBED 09:22 → JICU 12:33 → J4W 02-13 18:13 → JICU 02-24 16:34
PROVIDERS: ADMIT Internal Medicine; ATTEND Internal Medicine
PROC: 05HN33Z Insertion of Infusion Device into Left Internal Jugular Vein, Percutaneous Approach (ICD-10-PCS; principal; 2021-02-12)
PROC: 30233N1 Transfusion of Nonautologous Red Blood Cells into Peripheral Vein, Percutaneous Approach (ICD-10-PCS; 2021-02-22)
PROC: 0JBB0ZZ Excision of Perineum Subcutaneous Tissue and Fascia, Open Approach (ICD-10-PCS; 2021-02-24)
PROC: 0V950ZX Drainage of Scrotum, Open Approach, Diagnostic (ICD-10-PCS; 2021-02-24)
PROC: 0T9B30Z Drainage of Bladder with Drainage Device, Percutaneous Approach (ICD-10-PCS; 2021-02-24)
PROC: 0VTTXZZ Resection of Prepuce, External Approach (ICD-10-PCS; 2021-02-24 11:00)
DX: A41.89 Other specified sepsis (principal); N49.3 Fournier gangrene; E78.5 Hyperlipidemia, unspecified; I48.0 Paroxysmal atrial fibrillation; I12.0 Hypertensive chronic kidney disease with stage 5 chronic kidney disease or end stage renal disease; E11.22 Type 2 diabetes mellitus with diabetic chronic kidney disease; N18.6 End stage renal disease; J98.11 Atelectasis; E87.2 Acidosis; R18.8 Other ascites; N43.3 Hydrocele, unspecified; E87.5 Hyperkalemia; E11.51 Type 2 diabetes mellitus with diabetic peripheral angiopathy without gangrene; E11.43 Type 2 diabetes mellitus with diabetic autonomic (poly)neuropathy; I95.9 Hypotension, unspecified; D64.9 Anemia, unspecified; I99.8 Other disorder of circulatory system; I25.10 Atherosclerotic heart disease of native coronary artery without angina pectoris; I25.2 Old myocardial infarction; N49.2 Inflammatory disorders of scrotum; E11.52 Type 2 diabetes mellitus with diabetic peripheral angiopathy with gangrene; R11.10 Vomiting, unspecified; K59.09 Other constipation; I96 Gangrene, not elsewhere classified; E66.9 Obesity, unspecified; T82.868A Thrombosis due to vascular prosthetic devices, implants and grafts, initial encounter; Y83.8 Other surgical procedures as the cause of abnormal reaction of the patient, or of later complication, without mention of misadventure at the time of the procedure; I45.10 Unspecified right bundle-branch block; R94.5 Abnormal results of liver function studies; N47.1 Phimosis; R50.9 Fever, unspecified; D72.829 Elevated white blood cell count, unspecified; E11.622 Type 2 diabetes mellitus with other skin ulcer; L97.118 Non-pressure chronic ulcer of right thigh with other specified severity; J95.89 Other postprocedural complications and disorders of respiratory system, not elsewhere classified; D63.1 Anemia in chronic kidney disease; D69.6 Thrombocytopenia, unspecified; R09.02 Hypoxemia; R16.2 Hepatomegaly with splenomegaly, not elsewhere classified; I46.9 Cardiac arrest, cause unspecified; K92.0 Hematemesis; L97.128 Non-pressure chronic ulcer of left thigh with other specified severity; I34.0 Nonrheumatic mitral (valve) insufficiency; Y84.8 Other medical procedures as the cause of abnormal reaction of the patient, or of later complication, without mention of misadventure at the time of the procedure; R00.0 Tachycardia, unspecified; B96.20 Unspecified Escherichia coli [E. coli] as the cause of diseases classified elsewhere; B96.1 Klebsiella pneumoniae [K. pneumoniae] as the cause of diseases classified elsewhere; Z99.2 Dependence on renal dialysis; Z86.73 Personal history of transient ischemic attack (TIA), and cerebral infarction without residual deficits; Z68.36 Body mass index [BMI] 36.0-36.9, adult
CPT/HCPCS: 36415; 36430; 36600; 71045-TC-FY; 71250-TC; 71275-TC; 73630-TC-LT; 74176-TC; 74177-TC; 76705-TC; 80048; 80053; 82010; 82248; 82550; 82803; 82962; 82977; 83036; 83605; 83735; 83880; 84100; 84439; 84443; 84484; 85025; 85027; 85610; 86215; 86850; 86900; 86901; 86922; 87040; 87070; 87086; 87186; 87205; 87804; 93005; 93010; 93306-TC; 94640; 94660; 94760; 99285-25; C9803; G0480; J0131; J0282; J1644; P9047; P9058; Q5106; Q9967; U0003; U0005